=== PATIENT | male | born 1935 | race Caucasian/White ===

== ENCOUNTER 2019-10-20 07:25 | Observation (INO) | payer MEDICARE, BC ==
[2019-10-20 08:50] LABS: CHLORIDE,CL 100 mEq/L (98-106); SODIUM,NA 137 mEq/L (136-145)
--- NOTE | 2019-10-20 09:25 | EDM.PDOC ---
ED HPI GENERAL MEDICAL PROBLEM - General Chief Complaint: General Stated Complaint: fall with laceration Time Seen by Provider: 10/20/19 08:05 Source of Information: Reports: Patient, Family History Limitations: Reports: No Limitations - History of Present Illness INITIAL COMMENTS - FREE TEXT/NARRATIVE: Patient presented to ER per EMS with complaints of a fall this am at home. Patient relates he had gotten up to the bathroom, started to feel "a bit dizzy" and fell. Did hit his head on the floor, no loss of consciousness. Daughter does live with him and was in the next room and heard him fall. He denies headache. Has not been acutely ill. 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 Has been on daily chemo pills for the last year, has been stable. Patient denies any shortness of breath, chest pain, headache or fevers. Has been eating well per daughter's. Does relate that he doesn't drink much other than coffee so he tends to be "dry at times". 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) - Related Data Allergies Allergy/AdvReac Type Severity Reaction Status Date / Time No Known Allergies Allergy Verified 10/20/19 07:39 Home Meds: Home Meds Abiraterone Acetate [Zytiga] 250 mg PO QID 10/20/19 [History] Aspirin 325 mg PO DAILY 10/20/19 [History] Cholecalciferol (Vitamin D3) [Vitamin D3] 5,000 unit PO DAILY 10/20/19 [History] Folic Acid 0.4 mg PO DAILY 10/20/19 [History] Insulin Detemir [Levemir Flextouch] 10 unit SQ BEDTIME 10/20/19 [History] Irbesartan 150 mg PO DAILY 10/20/19 [History] Metoprolol Tartrate [Lopressor] 50 mg PO BID 10/20/19 [History] Pantoprazole Sodium 40 mg PO DAILY 10/20/19 [History] Prochlorperazine Maleate 10 mg PO ASDIRECTED PRN 10/20/19 [History] amLODIPine Besylate/Benazepril [Amlodipine-Benazepril 5-20 mg] 1 each PO DAILY 10/20/19 [History] metFORMIN HCl [Metformin HCl ER] 500 mg PO BID 10/20/19 [History] predniSONE [Prednisone] 5 mg PO BID 10/20/19 [History] traMADol HCl [Tramadol HCl] 1 tab PO Q8H PRN 10/20/19 [History] Past Medical History Cardiovascular History: Reports: High Cholesterol, Hypertension Respiratory History: Reports: COPD, Other (See Below) Other Respiratory History: lung nodule Gastrointestinal History: Reports: Cholelithiasis, Other (See Below) Other Gastrointestinal History: weight loss Genitourinary History: Reports: Urinary Incontinence, Other (See Below) Other Genitourinary History: prostrate CA Musculoskeletal History: Reports: Arthritis, Osteoporosis, Other (See Below) Other Musculoskeletal History: prostrate CA with bone mets Endocrine/Metabolic History: Reports: Diabetes, Type II, Other (See Below) Other Endocrine/Metabolic History: hyponatremia Oncologic (Cancer) History: Reports: Metastatic, Prostate, Other (See Below) Other Oncologic History: prostrate with bone mets - Past Surgical History Cardiovascular Surgical History: Reports: AAA Repair GI Surgical History: Reports: None Male Surgical History: Reports: Other (See Below) Other Male Surgeries/Procedures: prostrate seeds for CA Oncologic Surgical History: Reports: Other (See Below) Other Oncologic Surgeries/Procedures: seeds for prostrate CA Social & Family History - Tobacco Use Smoking Status *Q: Former Smoker Used Tobacco, but Quit: Yes Month/Year Tobacco Last Used: 2010 ED ROS GENERAL - Review of Systems Review Of Systems: See Below Constitutional: Reports: Malaise, Weakness, Fatigue. Denies: Fever, Chills, Decreased Appetite HEENT: Reports: Vertigo. Denies: Ear Discharge, Throat Pain, Vision Change Respiratory: Denies: Shortness of Breath Cardiovascular: Denies: Chest Pain, Edema, Lightheadedness Endocrine: Denies: Fatigue GI/Abdominal: Reports: Nausea. Denies: Abdominal Pain, Diarrhea, Vomiting : Denies: Incontinence Skin: Reports: Wound Neurological: Reports: Dizziness, Weakness. Denies: Seizure, Difficulty Walking Psychiatric: Reports: No Symptoms ED EXAM, GENERAL - Physical Exam Exam: See Below Exam Limited By: No Limitations General Appearance: Alert, WD/WN, No Apparent Distress Eye Exam: Bilateral Eye: EOMI, PERRL Ears: Normal External Exam, Normal TMs Nose: Normal Inspection, Normal Mucosa, No Blood Throat/Mouth: Normal Inspection, Normal Oropharynx, Other (mucous membranes are dry) Head: Normocephalic, Other (small hematoma to right parietal area to with superficial abrasion) Neck: Normal Inspection, Supple, Non-Tender, Full Range of Motion Respiratory/Chest: No Respiratory Distress, Lungs Clear, Normal Breath Sounds Cardiovascular: Regular Rate, Rhythm GI/Abdominal: Normal Bowel Sounds, Soft, Non-Tender Extremities: Normal Inspection, No Pedal Edema Neurological: Alert, Oriented Skin Exam: Warm, Dry Course - Vital Signs Last Recorded V/S: Last Vital Signs Temp 100.4 F 10/20/19 13:42 Pulse 130 H 10/20/19 13:42 Resp 20 10/20/19 13:42 BP 141/86 H 10/20/19 13:42 Pulse Ox 95 10/20/19 13:42 - Orders/Labs/Meds Orders: Active Orders 24 hr Category Date Time Status Head wo Cont [CT] Stat Exams 10/20/19 08:16 Taken Head wo Cont [CT] Stat Exams 10/20/19 11:29 Taken Hip Min 2V or 3V w Pelvis Rt [CR] Stat Exams 10/20/19 08:16 Taken Labs: Laboratory Tests 10/20/19 10/20/19 10/20/19 Range/Units 08:17 08:30 08:30 WBC 4.6 L (5.0-10.0) 10^3/uL RBC 5.72 (4.50-6.00) 10^6/uL Hgb 17.3 (14.0-18.0) g/dL Hct 48.3 (40.0-54.0) % MCV 84.4 (82.0-94.0) fL MCH 30.2 (27.0-32.0) pg MCHC 35.8 (33.0-38.0) g/dL RDW Coeff of Sherri 13.7 (11.0-15.0) % Plt Count 228 (150-400) 10^3/uL Neut % (Auto) 48.6 (35-85) % Lymph % (Auto) 35.2 (10-55) % [place] % (Auto) 14.7 (0-16) % Eos % (Auto) 0.9 (0-5) % Baso % (Auto) 0.6 (0-3) % Neut # (Auto) 2.25 (1.80-7.00) 10^3/uL Lymph # (Auto) 1.63 (1.00-4.80) 10^3/uL [place] # (Auto) 0.68 (0.00-0.80) 10^3/uL Eos # (Auto) 0.04 (0.00-0.45) 10^3/uL Baso # (Auto) 0.03 10^3/uL Sodium 137 (136-145) mEq/L Potassium 4.4 (3.5-5.0) mEq/L Chloride 100 (98-106) mEq/L Carbon Dioxide 28 (21-32) mmol/L BUN 17 (7-18) mg/dL Creatinine 0.9 (0.7-1.3) mg/dL Est Cr Clr Drug Dosing 63.48 mL/min Estimated GFR (MDRD) > 60 (>=60) mL/min Glucose 192 H (75-99) mg/dL Calcium 9.2 (8.4-10.1) mg/dL Total Bilirubin 0.6 (0.0-1.0) mg/dL AST 18 (15-37) U/L ALT 19 (12-78) U/L Alkaline Phosphatase 63 (46-116) U/L Troponin I < 0.017 (0.00-0.06) ng/mL Total Protein 7.4 (6.4-8.2) g/dL Albumin 3.5 (3.4-5.0) g/dL Urine Color Yellow (YELLOW) Urine Appearance Slightly cloudy (CLEAR) Urine pH 7.0 (4.5-8.0) Ur Specific [place] 1.020 (1.003-1.020) Urine Protein Trace H (NEGATIVE) mg/dL Urine Glucose (UA) Negative (NEGATIVE) mg/dL Urine Ketones Negative (NEGATIVE) mg/dL Urine Occult Blood Negative (NEGATIVE) Urine Nitrite Negative (NEGATIVE) Urine Bilirubin Negative (NEGATIVE) Urine Urobilinogen 1.0 (0.2-1.0) EU/dL Ur Leukocyte Esterase Negative (NEGATIVE) Urine RBC 0-5 (0-5) /HPF Urine WBC Not seen (0-5) /HPF Ur Epithelial Cells Few H (NOT SEEN) /HPF Meds: Medications Discontinued Medications Generic Name Dose Route Start Last Admin Trade Name Ani PRN Reason Stop Dose Admin Haloperidol Lactate 2 mg 10/20/19 11:37 10/20/19 11:45 Haldol IVPUSH 10/20/19 11:38 2 mg ONETIME ONE Administration Sodium Chloride 1,000 mls @ 150 mls/hr 10/20/19 11:30 10/20/19 11:36 Normal Saline IV 150 mls/hr ASDIRECTED JUANA Administration Sodium Chloride Confirm 10/20/19 11:41 10/20/19 11:46 Normal Saline Administered 10/20/19 11:42 Not Given Dose 1,000 mls @ as directed .ROUTE .STK-MED ONE Lorazepam 1 mg 10/20/19 11:28 10/20/19 11:35 Ativan IVPUSH 10/20/19 11:29 1 mg ONETIME ONE Administration Lorazepam Confirm 10/20/19 11:41 10/20/19 11:46 Ativan Administered 10/20/19 11:42 Not Given Dose 2 mg .ROUTE .STK-MED ONE - Re-Assessments/Exams Free Text/Narrative Re-Assessment/Exam: 10/20/19 0920- Patient's labs normal. CT scan of the head normal. Patient a bit more restless now than on presentation to ER. Was able to ambulate to the bathroom with his walker, did well. Once transferred to chair, less restless. Daughter worries about restlessness, seems "odd". Discussed admission with 2 daughters, patient but her refuses and they agree they will take him home to monitor. Did discuss changes to watch for, ie. mental status changes. Push fluids. Departure - Departure Time of Disposition: 09:24 Disposition: Home, Self-Care 01 Condition: Fair Clinical Impression: Contusion, Fall - Discharge Information *PRESCRIPTION DRUG MONITORING PROGRAM REVIEWED*: No *COPY OF PRESCRIPTION DRUG MONITORING REPORT IN PATIENT CYRIL: No Sepsis Event Note - Evaluation Sepsis Screening Result: No Definite Risk - Focused Exam Vital Signs: Vital Signs Temp Pulse Resp BP Pulse Ox 10/20/19 12:30 99.6 F 122 H 20 123/67 98 Date Exam was Performed: 10/20/19 Time Exam was Performed: 20:54 - My Orders Last 24 Hours: My Active Orders 10/20/19 08:16 Head wo Cont [CT] Stat Hip Min 2V or 3V w Pelvis Rt [CR] Stat 10/20/19 11:29 Head wo Cont [CT] Stat - Assessment/Plan Last 24 Hours: My Active Orders 10/20/19 08:16 Head wo Cont [CT] Stat Hip Min 2V or 3V w Pelvis Rt [CR] Stat 10/20/19 11:29 Head wo Cont [CT] Stat
[2019-10-20] MEDS ORDERED: LORazepam 2 MG/ML Syringe IVPUSH ONE (11:28)
[2019-10-20] MEDS ORDERED: Sodium Chloride 0.9% 1,000 ML IV SCH (11:30)
[2019-10-20] MEDS ORDERED: Haloperidol Lactate 5 MG/ML SDV IVPUSH ONE (11:37)
[2019-10-20] MEDS ORDERED: LORazepam 2 MG/ML Syringe ONE (11:41)
[2019-10-20] MEDS ORDERED: Sodium Chloride 0.9% 1,000 ML ONE (11:41)
--- NOTE | 2019-10-22 11:24 | PCM.DCSUM1 ---
Discharge Summary - Hospital Course Free Text/Narrative:: Jack is an 83 year old male who presented for direct admit to observation as he had been seen earlier in the ER and discharged. Patient presented in the am after a fall at home. He had been ambulating to the bathroom, got dizzy and fell to the floor. Did hit his head but no loss of consciousness. Daughter lives with patient and was there with him shortly after the fall. Did call for assistance to get him up from the floor and he was ambulating well and conversing well. Had labs and CT scan of his head in the ER which were normal. Was somewhat restless in the ER until settled in to a wheelchair but family opted to take him home as patient did not want to be admitted. After arriving at home, patient was more confused, restless, reaching out for things that weren 't there so they returned back for admission. Patient had significant change in status on arrival from EMS. Confused, dazed and not able to be redirected. Admitted for further work up including repeat CT scan. Oxygen sats vary now between 92-98%. Blood pressure is lower than earlier on arrival. IV fluids started. Diagnosis: Stroke: No - Discharge Data Discharge Date: 10/20/19 Discharge Disposition: DC/Tfer to Acute Hospital 02 Condition: Serious - Referral to Home Health Primary Care Physician: Iris Chairez NP - Patient Summary/Data Complications: altered mental status Hospital Course: Patient presented with confusion, restlessness. Had a fall this am after complaining of dizziness. Labs and CT in ER were normal. Returned home and had change of status so EMS was recalled. Directly admitted here. Patient thrashes around the bed, is dazed, unable to redirect. Vital signs are stable, blood pressure is normal however much lower than when presented earlier to ER. Did give patient IV ATivan and Haldol for sedation in order to obtain repeat CT scan of head. Was accomplished and again read out as normal. IV fluids started , patient oxygen sats do vary between 92-98%. Temp low grade now. Consulted with Dr. Khan at [facility] due to change in status and unknown source of change. Did agree to accept the patient in transfer. [facility] arranged. Family aware of risks and benefits of transfer as adequately discussed with all 4 sisters. Do want to keep patient a Code 1 now except intubation as does have a history of stage IV prostate cancer. Risks of transfer include worsening status with possible , life flight crash. Benefits of transfer include intensive care with further testing and treatment options. Risks of non transfer include worsening status and . Benefits of transfer include care close to home. Family all agrees with transfer to [facility] On discharge, patient is more calm, does say yes and no now. Vital signs stable. - Patient Instructions Diet: NPO Activity: Bedrest - Discharge Plan *PRESCRIPTION DRUG MONITORING PROGRAM REVIEWED*: No *COPY OF PRESCRIPTION DRUG MONITORING REPORT IN PATIENT CYRIL: No Home Medications: Home Meds Abiraterone Acetate [Zytiga] 250 mg PO QID 10/20/19 [History] Aspirin 325 mg PO DAILY 10/20/19 [History] Cholecalciferol (Vitamin D3) [Vitamin D3] 5,000 unit PO DAILY 10/20/19 [History] Folic Acid 0.4 mg PO DAILY 10/20/19 [History] Insulin Detemir [Levemir Flextouch] 10 unit SQ BEDTIME 10/20/19 [History] Irbesartan 150 mg PO DAILY 10/20/19 [History] Metoprolol Tartrate [Lopressor] 50 mg PO BID 10/20/19 [History] Pantoprazole Sodium 40 mg PO DAILY 10/20/19 [History] Prochlorperazine Maleate 10 mg PO ASDIRECTED PRN 10/20/19 [History] amLODIPine Besylate/Benazepril [Amlodipine-Benazepril 5-20 mg] 1 each PO DAILY 10/20/19 [History] metFORMIN HCl [Metformin HCl ER] 500 mg PO BID 10/20/19 [History] predniSONE [Prednisone] 5 mg PO BID 10/20/19 [History] traMADol HCl [Tramadol HCl] 1 tab PO Q8H PRN 10/20/19 [History] Forms: ED Department Discharge Referrals: Iris Chairez, RECORDS MANAGEMENT DIRECTOR [Primary Care Provider] - - Discharge Summary/Plan Comment DC Time >30 min.: Yes Discharge Summary/Plan Comment: Transfer to [facility] ER Time with critical care with patient 60 minutes Time for transfer/orders 15 minutes Time for documentation 15 minutes - General Info Date of Service: 10/20/19 Admission Dx/Problem (Free Text: Altered Mental Status - Review of Systems General: Reports: Other (unobtainable) - Patient Data Vitals - Most Recent: Last Vital Signs Temp 100.4 F 10/20/19 13:42 Pulse 130 H 10/20/19 13:42 Resp 20 10/20/19 13:42 BP 141/86 H 10/20/19 13:42 Pulse Ox 95 10/20/19 13:42 Weight - Most Recent: 149 lb Med Orders - Current: Current Medications Discontinued Medications Haloperidol Lactate (Haldol) 2 mg IVPUSH ONETIME ONE Stop: 10/20/19 11:38 Last Admin: 10/20/19 11:45 Dose: 2 mg Sodium Chloride (Normal Saline) 1,000 mls @ 150 mls/hr IV ASDIRECTED JUANA Last Admin: 10/20/19 11:36 Dose: 150 mls/hr Sodium Chloride (Normal Saline) Confirm Administered Dose 1,000 mls @ as directed .ROUTE .STK-MED ONE Stop: 10/20/19 11:42 Last Admin: 10/20/19 11:46 Dose: Not Given Lorazepam (Ativan) 1 mg IVPUSH ONETIME ONE Stop: 10/20/19 11:29 Last Admin: 10/20/19 11:35 Dose: 1 mg Lorazepam (Ativan) Confirm Administered Dose 2 mg .ROUTE .STK-MED ONE Stop: 10/20/19 11:42 Last Admin: 10/20/19 11:46 Dose: Not Given - Exam Quality Assessment: Reports: Supplemental Oxygen General: Reports: Sedated, Lethargic HEENT: Reports: Pupils Reactive Neck: Reports: Supple Lungs: Reports: Clear to Auscultation, Normal Respiratory Effort Cardiovascular: Reports: Regular Rate, Regular Rhythm GI/Abdominal Exam: Normal Bowel Sounds, Soft, Non-Tender Skin: Reports: Cool Psy/Mental Status: Reports: Agitated
== END 2019-10-20 14:25 ==
LOC: CC.ED 07:25 → CC.MS 10:30 → UNDOADMOB 10:30 → CC.MS 12:50
PROVIDERS: ADMIT Physician Assistant Medical; ATTEND Family Medicine
DX: R41.82 Altered mental status, unspecified (principal); S00.83XA Contusion of other part of head, initial encounter; E78.00 Pure hypercholesterolemia, unspecified; I10 Essential (primary) hypertension; J44.9 Chronic obstructive pulmonary disease, unspecified; M19.90 Unspecified osteoarthritis, unspecified site; M81.0 Age-related osteoporosis without current pathological fracture; E11.9 Type 2 diabetes mellitus without complications; W18.30XA Fall on same level, unspecified, initial encounter; Y92.002 Bathroom of unspecified non-institutional (private) residence as the place of occurrence of the external cause; Z87.891 Personal history of nicotine dependence
CPT/HCPCS: 36415; 51702; 70450; 73502; 80053; 81001; 84484; 85025; 93005; 96374; 96375; 99285; G0378; J1630; J2060; J7030

== ENCOUNTER 2022-01-22 20:27 | Emergency (ER) | payer MEDICARE, BC ==
[2022-01-22 21:18] LABS: CHLORIDE,CL 100 mEq/L (98-106); SODIUM,NA 137 mEq/L (136-145)
== END 2022-01-22 23:00 | disposition home or self-care (01) ==
LOC: CC.ED 20:27
DX: K59.01 Slow transit constipation (principal); E11.9 Type 2 diabetes mellitus without complications; I10 Essential (primary) hypertension; J44.9 Chronic obstructive pulmonary disease, unspecified; Z79.4 Long term (current) use of insulin; Z79.899 Other long term (current) drug therapy; Z88.1 Allergy status to other antibiotic agents
CPT/HCPCS: 36415; 74019; 80053; 81001; 83690; 85025; 86140; 99284; 99284-25

== ENCOUNTER 2022-06-13 21:26 | Emergency (ER) | payer MEDICARE, BC ==
[2022-06-13] MEDS ORDERED: Sodium Chloride 0.9% 1,000 ML IV ONE (22:14)
[2022-06-13] MEDS ORDERED: Sodium Chloride 0.9% 10 ML Syringe FLUSH PRN (22:14)
[2022-06-13] MEDS ORDERED: Furosemide 40 MG/4 ML VIAL IVPUSH ONE (23:13)
== END 2022-06-14 01:55 ==
LOC: CC.ED 21:26
DX: I12.9 Hypertensive chronic kidney disease with stage 1 through stage 4 chronic kidney disease, or unspecified chronic kidney disease (principal); E11.22 Type 2 diabetes mellitus with diabetic chronic kidney disease; N18.32 Chronic kidney disease, stage 3b; E87.5 Hyperkalemia; E87.1 Hypo-osmolality and hyponatremia; L03.116 Cellulitis of left lower limb; E78.00 Pure hypercholesterolemia, unspecified; J44.9 Chronic obstructive pulmonary disease, unspecified; Z88.1 Allergy status to other antibiotic agents; Z79.01 Long term (current) use of anticoagulants; Z79.4 Long term (current) use of insulin
CPT/HCPCS: 36415; 74176; 80053; 83880; 84484; 85025; 93005; 96361; 96374; 99284-25; 99285; J1940; J7030

== ENCOUNTER 2022-06-15 11:29 | Emergency (ER) | payer MEDICARE, BC ==
[2022-06-15] MEDS ORDERED: Sodium Chloride 0.9% 1,000 ML IV ONE (11:47)
[2022-06-15] MEDS ORDERED: Sodium Chloride 0.9% 10 ML Syringe FLUSH PRN (11:47)
[2022-06-15 11:55] LABS: CHLORIDE,CL 90 mEq/L (98-106)
[2022-06-15 11:56] LABS: ESTIMATED GFR 46 mL/min (>=60); SODIUM,NA 123 mEq/L (136-145)
[2022-06-15] MEDS ORDERED: traMADol 50 MG Tab PO ONE (15:13)
[2022-06-15] MEDS ORDERED: Acetaminophen 325 MG Tab PO ONE (15:14)
== END 2022-06-15 17:45 | disposition home or self-care (01) ==
LOC: CC.ED 11:29
DX: R53.1 Weakness (principal); I12.9 Hypertensive chronic kidney disease with stage 1 through stage 4 chronic kidney disease, or unspecified chronic kidney disease; E11.22 Type 2 diabetes mellitus with diabetic chronic kidney disease; N18.32 Chronic kidney disease, stage 3b; E87.1 Hypo-osmolality and hyponatremia; E78.00 Pure hypercholesterolemia, unspecified; J44.9 Chronic obstructive pulmonary disease, unspecified; Z79.4 Long term (current) use of insulin; Z79.01 Long term (current) use of anticoagulants; Z79.899 Other long term (current) drug therapy
CPT/HCPCS: 36415; 73700-RT; 80053; 83735; 85025; 96360; 96361; 99284; 99284-25; A9270-GY; J7030

== ENCOUNTER 2022-08-19 12:00 | Inpatient (IN) | payer MEDICARE, BC ==
[2022-08-19] MEDS ORDERED: Barium Sulfate w/v 2% Oral Susp 450 ML Bottle PO ONE (20:25)
[2022-09-13 10:38] LABS: CHLORIDE,CL 98 mEq/L (98-106); SODIUM,NA 133 mEq/L (136-145)
[2022-09-13 10:39] LABS: ESTIMATED GFR 39 mL/min (>=60)
[2022-09-13 12:36] LABS: CHLORIDE,CL 97 mEq/L (98-106); ESTIMATED GFR 29 mL/min (>=60); SODIUM,NA 132 mEq/L (136-145)
== END 2022-08-22 12:41 | disposition home or self-care (01) | DRG 309 ==
LOC: CC.DI 12:00 → CC.ZCENSUS 13:52 → UNDOADMIN 13:52 → UNDODISIN 08-22 12:41 → EDSTATUS 09-11 16:22
PROVIDERS: ADMIT Nurse Practitioner Family; ATTEND Nurse Practitioner Family
DX: I48.91 Unspecified atrial fibrillation (principal); N17.9 Acute kidney failure, unspecified; E87.5 Hyperkalemia; E13.51 Other specified diabetes mellitus with diabetic peripheral angiopathy without gangrene; Z66 Do not resuscitate; Z20.822 Contact with and (suspected) exposure to COVID-19; Z85.46 Personal history of malignant neoplasm of prostate; K59.00 Constipation, unspecified; Z86.73 Personal history of transient ischemic attack (TIA), and cerebral infarction without residual deficits; Z79.899 Other long term (current) drug therapy
CPT/HCPCS: 71046; 73030-RT; 74018; 74176; 93005

== ENCOUNTER 2023-04-30 10:10 | Observation (INO) | payer MEDICARE, BC ==
[2023-04-30 10:24] LABS: BASOPHILS ABSOLUTE AUTO 0.04 10^3/uL (0.00-0.50); BASOPHILS PERCENT AUTO 0.5 % (0-1); EOSINOPHILS ABSOLUTE AUTO 0.09 10^3/uL (0.00-1.50); EOSINOPHILS PERCENT AUTO 1.1 % (0-6); HEMATOCRIT 24.2 % (42.0-52.0); IMMATURE GRAN ABSOLUTE AUTO 0.04 10^3/uL (0.00-0.49); IMMATURE GRAN PERCENT AUTO 0.5 % (0.0-4.9); LYMPHOCYTES ABSOLUTE AUTO 0.55 10^3/uL (0.60-5.00); LYMPHOCYTES PERCENT AUTO 6.5 % (24-44); MEAN CORPUSCULAR HEMOGLOBIN 20.1 pg (27.0-32.0); MEAN CORPUSCULAR HGB CONC 29.3 g/dL (32.0-36.0); MEAN CORPUSCULAR VOLUME 68.6 fL (83.0-97.0); MONOCYTES ABSOLUTE AUTO 0.85 10^3/uL (0.00-1.50); NEUTROPHILS ABSOLUTE AUTO 6.93 x10^3/uL (1.80-8.00); NEUTROPHILS PERCENT AUTO 81.4 % (41-71); PLATELET COUNT,PLT 318 10^3/uL (150-400); RED BLOOD CELL COUNT 3.53 x10^6/uL (4.50-6.00); WHITE BLOOD CELL COUNT,WBC 8.5 10^3/uL (4.0-11.0)
[2023-04-30 10:32] LABS: HEMOGLOBIN 7.1 g/dL (14.0-18.0)
[2023-04-30 10:46] LABS: SEDIMENTATION RATE MANUAL 43 mm/hr (0-15)
[2023-04-30 10:49] LABS: ALANINE AMINOTRANSFERASE,ALT 24 U/L (12-78); ALKALINE PHOSPHATASE 59 U/L (46-116); ASPARTATE AMNIOTRANSFERASE,AST 19 U/L (15-37); BILIRUBIN TOTAL 0.4 mg/dL (0.0-1.0); BLOOD UREA NITROGEN,BUN 34 mg/dL (7-18); C-REACTIVE PROTEIN 2.18 mg/dL (<=0.30); CALCIUM 8.8 mg/dL (8.4-10.1); CARBON DIOXIDE,CO2 26 mmol/L (21-32); CHLORIDE,CL 98 mEq/L (98-106); CREATININE 1.6 mg/dL (0.7-1.3); GLUCOSE RANDOM 153 mg/dL (75-99); POTASSIUM,K 5.2 mEq/L (3.5-5.0); PRO B-TYPE NATRIUR PEPT,BNPPRO 1988 pg/mL (0-1000); PROTEIN TOTAL,TP 7.1 g/dL (6.4-8.2); PSA DIAGNOSTIC 70.55 ng/mL (0.13-4.0); SODIUM,NA 132 mEq/L (136-145)
[2023-04-30 10:56] LABS: ESTIMATED GFR 42 mL/min (>=60)
[2023-04-30] MEDS ORDERED: Acetaminophen 325 MG Tab PO PRN (13:26)
[2023-04-30] MEDS ORDERED: Acetaminophen 325 MG Tab PO ONE (13:26)
[2023-04-30] MEDS ORDERED: Ondansetron 4 MG/2 ML SDV IV PRN (13:26)
[2023-04-30] MEDS ORDERED: Ondansetron 4 MG Tab.DIS PO PRN (13:26)
[2023-04-30] MEDS ORDERED: Furosemide 20 MG/2 ML VIAL IVPUSH ONE (13:26)
[2023-04-30] MEDS ORDERED: Sodium Chloride 0.9% 250 ML IV SCH (13:30)
[2023-04-30 14:00] LABS: APPEARANCE,URINE CLEAR (CLEAR); BILIRUBIN,URINE NEGATIVE (NEGATIVE); COLOR,URINE YELLOW (YELLOW); GLUCOSE,URINE NEGATIVE (NEGATIVE); KETONES,URINE NEGATIVE (NEGATIVE); LEUKOCYTE ESTERASE,URINE SMALL (NEGATIVE); NITRITE,URINE NEGATIVE (NEGATIVE); OCCULT BLOOD,URINE MODERATE (NEGATIVE); PH,URINE 5.5 (4.5-8.0); PROTEIN,URINE NEGATIVE (NEGATIVE); UROBILINOGEN,URINE 0.2 EU/dL (0.2-1.0)
[2023-04-30 14:03] LABS: BACTERIA,URINE OCCASIONAL /HPF (NOT SEEN); EPITHELIAL CELLS,URINE OCCASIONAL /HPF (NOT SEEN); WBC,URINE 0-5 /HPF (0-5)
[2023-04-30] MEDS ORDERED: Pantoprazole 40 MG Vial IVPUSH ONE (14:27)
[2023-04-30] MEDS ORDERED: Pantoprazole 40 MG in Sodium Chloride 0.9% 100 ML IV SCH (14:45)
[2023-04-30] MEDS: metFORMIN 500 MG Tab PO SCH (17:59)
[2023-04-30] MEDS: Sennosides/Docusate Sodium 50-8.6 MG Tab PO SCH (19:53)
[2023-04-30] MEDS: Acetaminophen 325 MG Tab PO SCH (19:53)
[2023-04-30] MEDS: predniSONE 5 MG Tab PO SCH (19:53)
[2023-04-30] MEDS: Tamsulosin 0.4 MG Cap.ER PO SCH (19:53)
[2023-04-30] MEDS: traMADol 50 MG Tab PO SCH (19:53)
[2023-04-30] MEDS: Metoprolol Tartrate 25 MG Tab PO SCH (19:54)
[2023-04-30] MEDS: Diltiazem IR 30 MG Tab PO SCH (19:54)
[2023-05-01] MEDS: Diltiazem IR 30 MG Tab PO SCH ×4 (01:31→19:50)
[2023-05-01] MEDS: Pantoprazole 40 MG Tab.CR PO SCH (06:49)
[2023-05-01 07:42] LABS: BASOPHILS ABSOLUTE AUTO 0.04 10^3/uL (0.00-0.50); BASOPHILS PERCENT AUTO 0.5 % (0-1); EOSINOPHILS ABSOLUTE AUTO 0.08 10^3/uL (0.00-1.50); HEMATOCRIT 28.4 % (42.0-52.0); HEMOGLOBIN 8.7 g/dL (14.0-18.0); IMMATURE GRAN ABSOLUTE AUTO 0.03 10^3/uL (0.00-0.49); IMMATURE GRAN PERCENT AUTO 0.4 % (0.0-4.9); LYMPHOCYTES PERCENT AUTO 8.3 % (24-44); MEAN CORPUSCULAR HEMOGLOBIN 21.6 pg (27.0-32.0); MEAN CORPUSCULAR HGB CONC 30.6 g/dL (32.0-36.0); MEAN CORPUSCULAR VOLUME 70.5 fL (83.0-97.0); MONOCYTES ABSOLUTE AUTO 1.04 10^3/uL (0.00-1.50); MONOCYTES PERCENT AUTO 12.4 % (0-10); NEUTROPHILS PERCENT AUTO 77.4 % (41-71); PLATELET COUNT,PLT 313 10^3/uL (150-400); RED BLOOD CELL COUNT 4.03 x10^6/uL (4.50-6.00); WHITE BLOOD CELL COUNT,WBC 8.4 10^3/uL (4.0-11.0)
[2023-05-01 07:49] LABS: CALCIUM 8.5 mg/dL (8.4-10.1); CREATININE 1.4 mg/dL (0.7-1.3); EST CRCL DRUG DOSING (CG) 39.83 mL/min; POTASSIUM,K 4.2 mEq/L (3.5-5.0)
[2023-05-01] MEDS ORDERED: Non-Formulary Medication 1 Each (Amlodipine Besylate/Benazepril [Amlodipine-Benazepril 10- PO SCH (08:00)
[2023-05-01] MEDS: Cholecalciferol (Vitamin D3) 5,000 UNIT Tab PO SCH (08:12)
[2023-05-01] MEDS: Furosemide 40 MG Tab PO SCH (08:13)
[2023-05-01] MEDS: Acetaminophen 325 MG Tab PO SCH ×2 (08:14→19:49)
[2023-05-01] MEDS: Lisinopril 20 MG Tab PO SCH (08:14)
[2023-05-01] MEDS: Metoprolol Tartrate 25 MG Tab PO SCH ×2 (08:15→19:50)
[2023-05-01] MEDS: metFORMIN 500 MG Tab PO SCH ×3 (08:15→18:30)
[2023-05-01] MEDS: predniSONE 5 MG Tab PO SCH ×2 (08:15→19:50)
[2023-05-01] MEDS: amLODIPine 10 MG Tab PO SCH (08:16)
[2023-05-01] MEDS: Sennosides/Docusate Sodium 50-8.6 MG Tab PO SCH ×2 (08:16→19:50)
[2023-05-01] MEDS: traMADol 50 MG Tab PO SCH ×2 (08:17→19:50)
[2023-05-01] MEDS: atorvaSTATin 20 MG Tab PO SCH (08:17)
[2023-05-01] MEDS: Insulin NPH HUM/REG Insulin HM 100 UNIT/ML 3 ML Vial SQ SCH (08:18)
[2023-05-01] MEDS ORDERED: Insulin NPH HUM/REG Insulin HM 100 UNIT/ML 3 ML Vial SQ SCH ×2 (12:00→20:00)
[2023-05-01] MEDS ORDERED: Nystatin Topical Powder 15 GM Bottle ONE (17:59)
[2023-05-01] MEDS: Nystatin Topical Powder 15 GM Bottle TOP SCH (19:49)
[2023-05-01] MEDS: Tamsulosin 0.4 MG Cap.ER PO SCH (19:50)
[2023-05-02] MEDS: Diltiazem IR 30 MG Tab PO SCH ×2 (01:52→07:52)
[2023-05-02] MEDS: Pantoprazole 40 MG Tab.CR PO SCH (06:53)
[2023-05-02 07:36] LABS: BASOPHILS ABSOLUTE AUTO 0.03 10^3/uL (0.00-0.50); BASOPHILS PERCENT AUTO 0.4 % (0-1); EOSINOPHILS ABSOLUTE AUTO 0.07 10^3/uL (0.00-1.50); HEMATOCRIT 29.4 % (42.0-52.0); HEMOGLOBIN 8.8 g/dL (14.0-18.0); IMMATURE GRAN ABSOLUTE AUTO 0.04 10^3/uL (0.00-0.49); IMMATURE GRAN PERCENT AUTO 0.6 % (0.0-4.9); LYMPHOCYTES ABSOLUTE AUTO 0.52 10^3/uL (0.60-5.00); LYMPHOCYTES PERCENT AUTO 7.5 % (24-44); MEAN CORPUSCULAR HEMOGLOBIN 21.2 pg (27.0-32.0); MEAN CORPUSCULAR HGB CONC 29.9 g/dL (32.0-36.0); MEAN CORPUSCULAR VOLUME 70.8 fL (83.0-97.0); MONOCYTES ABSOLUTE AUTO 0.85 10^3/uL (0.00-1.50); MONOCYTES PERCENT AUTO 12.3 % (0-10); NEUTROPHILS PERCENT AUTO 78.2 % (41-71); PLATELET COUNT,PLT 300 10^3/uL (150-400); RED BLOOD CELL COUNT 4.15 x10^6/uL (4.50-6.00); WHITE BLOOD CELL COUNT,WBC 6.9 10^3/uL (4.0-11.0)
[2023-05-02] MEDS: Acetaminophen 325 MG Tab PO SCH (07:50)
[2023-05-02] MEDS: traMADol 50 MG Tab PO SCH (07:51)
[2023-05-02] MEDS: atorvaSTATin 20 MG Tab PO SCH (07:51)
[2023-05-02] MEDS: Cholecalciferol (Vitamin D3) 5,000 UNIT Tab PO SCH (07:52)
[2023-05-02] MEDS: predniSONE 5 MG Tab PO SCH (07:52)
[2023-05-02] MEDS: Sennosides/Docusate Sodium 50-8.6 MG Tab PO SCH (07:52)
[2023-05-02] MEDS: Furosemide 40 MG Tab PO SCH (07:52)
[2023-05-02] MEDS: Metoprolol Tartrate 25 MG Tab PO SCH (07:53)
[2023-05-02] MEDS: Lisinopril 20 MG Tab PO SCH (07:54)
[2023-05-02] MEDS: amLODIPine 10 MG Tab PO SCH (07:54)
[2023-05-02] MEDS: Nystatin Topical Powder 15 GM Bottle TOP SCH (07:55)
[2023-05-02] MEDS: metFORMIN 500 MG Tab PO SCH (07:56)
[2023-05-02] MEDS: Insulin NPH HUM/REG Insulin HM 100 UNIT/ML 3 ML Vial SQ SCH (07:56)
[2023-05-02 08:09] LABS: ALBUMIN 2.7 g/dL (3.4-5.0); BILIRUBIN TOTAL 0.6 mg/dL (0.0-1.0); CALCIUM 8.4 mg/dL (8.4-10.1); CREATININE 1.4 mg/dL (0.7-1.3); EST CRCL DRUG DOSING (CG) 39.83 mL/min; POTASSIUM,K 4.4 mEq/L (3.5-5.0); PROTEIN TOTAL,TP 6.7 g/dL (6.4-8.2)
== END 2023-05-02 11:15 | disposition home or self-care (01) ==
LOC: CC.FCMC 10:10 → CC.MS 10:10 → UNDOADMOB 12:13 → CC.MS 12:13
PROVIDERS: ADMIT Nurse Practitioner Family; ATTEND Nurse Practitioner Family
DX: D50.0 Iron deficiency anemia secondary to blood loss (chronic) (principal); R19.5 Other fecal abnormalities; R41.0 Disorientation, unspecified; R63.0 Anorexia; R31.9 Hematuria, unspecified; R53.83 Other fatigue; R53.1 Weakness; I50.9 Heart failure, unspecified; C61 Malignant neoplasm of prostate; C79.51 Secondary malignant neoplasm of bone; R33.9 Retention of urine, unspecified; J44.9 Chronic obstructive pulmonary disease, unspecified; R63.4 Abnormal weight loss; M81.0 Age-related osteoporosis without current pathological fracture; M19.90 Unspecified osteoarthritis, unspecified site; E11.9 Type 2 diabetes mellitus without complications; Z88.1 Allergy status to other antibiotic agents; Z79.01 Long term (current) use of anticoagulants; Z79.4 Long term (current) use of insulin; Z79.84 Long term (current) use of oral hypoglycemic drugs; Z79.899 Other long term (current) drug therapy
CPT/HCPCS: 36415; 36430; 70450; 71046; 73030; 74176; 80048; 80053; 81001; 82272; 82947; 83880; 84153; 85025; 85651; 86140; 86850; 86900; 86901; 86920; 86922; 96365; 96366; 96375; 96376; A9270; C1758; C9113; G0378; J1815; J1940; J3490; J7512; P9016; 99223; 99233; 99238

== ENCOUNTER 2023-06-13 20:51 | Inpatient (IN) | payer MEDICARE, BC ==
[2023-06-13] MEDS ORDERED: Sodium Chloride 0.9% 500 ML IV SCH (21:15)
[2023-06-13 21:25] LABS: BASOPHILS ABSOLUTE AUTO 0.04 10^3/uL (0.00-0.50); BASOPHILS PERCENT AUTO 0.6 % (0-1); EOSINOPHILS ABSOLUTE AUTO 0.03 10^3/uL (0.00-1.50); EOSINOPHILS PERCENT AUTO 0.4 % (0-6); HEMATOCRIT 33.1 % (42.0-52.0); HEMOGLOBIN 10.2 g/dL (14.0-18.0); IMMATURE GRAN ABSOLUTE AUTO 0.04 10^3/uL (0.00-0.49); IMMATURE GRAN PERCENT AUTO 0.6 % (0.0-4.9); LYMPHOCYTES ABSOLUTE AUTO 0.62 10^3/uL (0.60-5.00); LYMPHOCYTES PERCENT AUTO 8.6 % (24-44); MEAN CORPUSCULAR HEMOGLOBIN 21.9 pg (27.0-32.0); MEAN CORPUSCULAR HGB CONC 30.8 g/dL (32.0-36.0); MONOCYTES ABSOLUTE AUTO 0.69 10^3/uL (0.00-1.50); MONOCYTES PERCENT AUTO 9.6 % (0-10); NEUTROPHILS PERCENT AUTO 80.2 % (41-71); PLATELET COUNT,PLT 299 10^3/uL (150-400); RED BLOOD CELL COUNT 4.66 x10^6/uL (4.50-6.00); WHITE BLOOD CELL COUNT,WBC 7.2 10^3/uL (4.0-11.0)
[2023-06-13 21:37] LABS: LACTIC ACID 1.8 mmol/L (0.4-2.0)
[2023-06-13 21:42] LABS: ALBUMIN 3.3 g/dL (3.4-5.0); BILIRUBIN TOTAL 0.6 mg/dL (0.0-1.0); C-REACTIVE PROTEIN 1.2 mg/dL (<=0.30); CALCIUM 9.6 mg/dL (8.4-10.1); CREATININE 1.4 mg/dL (0.7-1.3); EST CRCL DRUG DOSING (CG) 37.32 mL/min; POTASSIUM,K 4.2 mEq/L (3.5-5.0); PROTEIN TOTAL,TP 7.9 g/dL (6.4-8.2)
[2023-06-13] MEDS ORDERED: Diltiazem 25 MG/5 ML SDV IVPUSH ONE (22:18)
[2023-06-13] MEDS ORDERED: Levofloxacin/Dextrose 5%-Water 750 MG in Premix Bag 1 BAG IV ONE (22:21)
[2023-06-13 22:57] LABS: APPEARANCE,URINE CLEAR (CLEAR); BILIRUBIN,URINE NEGATIVE (NEGATIVE); COLOR,URINE YELLOW (YELLOW); GLUCOSE,URINE 100 mg/dL (NEGATIVE); KETONES,URINE NEGATIVE (NEGATIVE); LEUKOCYTE ESTERASE,URINE TRACE (NEGATIVE); NITRITE,URINE NEGATIVE (NEGATIVE); OCCULT BLOOD,URINE MODERATE (NEGATIVE); PROTEIN,URINE NEGATIVE (NEGATIVE); UROBILINOGEN,URINE 0.2 EU/dL (0.2-1.0)
[2023-06-13 23:04] LABS: BACTERIA,URINE FEW /HPF (NOT SEEN); SQUAMOUS EPITHELIAL CELLS,UR OCCASIONAL /HPF (NOT SEEN); WBC,URINE 0-5 /HPF (0-5)
[2023-06-13] MEDS ORDERED: Ondansetron 4 MG Tab.DIS PO PRN (23:13)
[2023-06-13] MEDS ORDERED: Acetaminophen 650 MG Supp RECTAL PRN (23:13)
[2023-06-13] MEDS ORDERED: 50% Dextrose in Water 50 ML Syringe IVPUSH PRN (23:13)
[2023-06-13] MEDS ORDERED: Albuterol 0.083% 2.5 MG/3 ML Neb Soln NEB PRN (23:13)
[2023-06-13] MEDS ORDERED: Sodium Chloride 0.9% 10 ML Syringe FLUSH PRN (23:13)
[2023-06-13] MEDS ORDERED: Ondansetron 4 MG/2 ML SDV IV PRN (23:13)
[2023-06-13] MEDS ORDERED: Glucagon,Human Recombinant 1 MG Vial IM PRN (23:13)
[2023-06-13] MEDS ORDERED: Furosemide 40 MG/4 ML VIAL ONE (23:49)
[2023-06-13] MEDS: Acetaminophen 325 MG Tab PO PRN (23:54)
[2023-06-13] MEDS ORDERED: Insulin Regular, Human 100 Units/ML 3 ML Vial ONE (23:55)
[2023-06-14] MEDS ORDERED: Insulin Regular, Human 100 Units/ML 3 ML Vial ONE
[2023-06-14] MEDS ORDERED: Diltiazem 25 MG/5 ML SDV IVPUSH STA (00:03)
[2023-06-14] MEDS: Insulin Regular, Human 100 Units/ML 3 ML Vial SUBCUT SCH ×6 (00:16→20:52)
[2023-06-14] MEDS: Furosemide 40 MG/4 ML VIAL IVPUSH SCH ×3 (00:18→16:13)
[2023-06-14] MEDS: Pantoprazole 40 MG Tab.CR PO SCH (06:02)
[2023-06-14 07:54] LABS: BASOPHILS ABSOLUTE AUTO 0.05 10^3/uL (0.00-0.50); BASOPHILS PERCENT AUTO 0.8 % (0-1); EOSINOPHILS ABSOLUTE AUTO 0.08 10^3/uL (0.00-1.50); EOSINOPHILS PERCENT AUTO 1.2 % (0-6); HEMATOCRIT 30.5 % (42.0-52.0); HEMOGLOBIN 9.6 g/dL (14.0-18.0); IMMATURE GRAN ABSOLUTE AUTO 0.04 10^3/uL (0.00-0.49); IMMATURE GRAN PERCENT AUTO 0.6 % (0.0-4.9); LYMPHOCYTES ABSOLUTE AUTO 0.84 10^3/uL (0.60-5.00); LYMPHOCYTES PERCENT AUTO 12.7 % (24-44); MEAN CORPUSCULAR HEMOGLOBIN 22.1 pg (27.0-32.0); MEAN CORPUSCULAR HGB CONC 31.5 g/dL (32.0-36.0); MEAN CORPUSCULAR VOLUME 70.3 fL (83.0-97.0); MONOCYTES ABSOLUTE AUTO 1.02 10^3/uL (0.00-1.50); MONOCYTES PERCENT AUTO 15.4 % (0-10); NEUTROPHILS ABSOLUTE AUTO 4.58 x10^3/uL (1.80-8.00); NEUTROPHILS PERCENT AUTO 69.3 % (41-71); PLATELET COUNT,PLT 267 10^3/uL (150-400); RED BLOOD CELL COUNT 4.34 x10^6/uL (4.50-6.00); WHITE BLOOD CELL COUNT,WBC 6.6 10^3/uL (4.0-11.0)
[2023-06-14] MEDS: traMADol 50 MG Tab PO SCH ×2 (07:58→19:41)
[2023-06-14] MEDS: Loratadine 10 MG Tab PO SCH (07:58)
[2023-06-14] MEDS: Sennosides/Docusate Sodium 50-8.6 MG Tab PO SCH ×2 (07:58→19:41)
[2023-06-14] MEDS: Cholecalciferol (Vitamin D3) 25 MCG Tab PO SCH (07:59)
[2023-06-14] MEDS: Folic Acid 1 MG Tab PO SCH (08:00)
[2023-06-14] MEDS: Acetaminophen 325 MG Tab PO SCH ×2 (08:00→19:42)
[2023-06-14] MEDS ORDERED: Nystatin Topical Powder 15 GM Bottle TOP SCH (08:00)
[2023-06-14] MEDS: Albuterol/Ipratropium 3.0-0.5 MG/3 ML Neb Soln NEB SCH ×4 (08:01→19:39)
[2023-06-14] MEDS: metFORMIN 500 MG Tab PO SCH ×2 (08:01→16:29)
[2023-06-14] MEDS: atorvaSTATin 20 MG Tab PO SCH (08:02)
[2023-06-14] MEDS: amLODIPine 10 MG Tab PO SCH (08:02)
[2023-06-14] MEDS: predniSONE 5 MG Tab PO SCH ×2 (08:02→19:41)
[2023-06-14] MEDS: Diltiazem IR 30 MG Tab PO SCH ×4 (08:03→19:41)
[2023-06-14] MEDS: Lisinopril 20 MG Tab PO SCH (08:03)
[2023-06-14 08:07] LABS: ALBUMIN 2.9 g/dL (3.4-5.0); BILIRUBIN TOTAL 0.6 mg/dL (0.0-1.0); C-REACTIVE PROTEIN 0.98 mg/dL (<=0.30); CALCIUM 9.1 mg/dL (8.4-10.1); CREATININE 1.3 mg/dL (0.7-1.3); EST CRCL DRUG DOSING (CG) 40.19 mL/min; POTASSIUM,K 4.1 mEq/L (3.5-5.0)
[2023-06-14] MEDS: Metoprolol Tartrate 25 MG Tab PO SCH ×2 (08:07→19:41)
[2023-06-14] MEDS: Calcium Carbonate/Vitamin D3 1250 MG-5 MCG Tab PO SCH ×2 (08:07→19:43)
[2023-06-14] MEDS: Polyvinyl Alcohol 1.4% Ophth Soln 15 ML Bottle EYEBOTH SCH ×2 (08:18→20:52)
[2023-06-14] MEDS: Polyethylene Glycol 3350 Powder 17 GM Packet PO SCH (08:34)
[2023-06-14] MEDS: Insulin Glarg,Human.Rec.Analog 100 Unit/ML 10 ML Vial SUBCUT SCH (08:34)
[2023-06-14] MEDS: Sodium Chloride 0.9% 1,000 ML IV SCH (14:07)
[2023-06-14] MEDS: Enoxaparin 40 MG/0.4 ML Syringe SUBCUT SCH (19:40)
[2023-06-14] MEDS: Tamsulosin 0.4 MG Cap.ER PO SCH (19:41)
[2023-06-14] MEDS: Nystatin Topical Powder 15 GM Bottle TOP PRN (20:53)
[2023-06-14] MEDS ORDERED: Furosemide 40 MG/4 ML VIAL IVPUSH SCH (22:57)
[2023-06-15] MEDS: Sodium Chloride 0.9% 1,000 ML IV SCH (02:51)
[2023-06-15] MEDS: Pantoprazole 40 MG Tab.CR PO SCH (06:11)
[2023-06-15] MEDS: Furosemide 40 MG/4 ML VIAL IVPUSH SCH (07:27)
[2023-06-15] MEDS: Polyethylene Glycol 3350 Powder 17 GM Packet PO SCH (07:27)
[2023-06-15] MEDS: Albuterol/Ipratropium 3.0-0.5 MG/3 ML Neb Soln NEB SCH ×4 (07:27→19:57)
[2023-06-15 07:29] LABS: BASOPHILS ABSOLUTE AUTO 0.02 10^3/uL (0.00-0.50); BASOPHILS PERCENT AUTO 0.3 % (0-1); EOSINOPHILS ABSOLUTE AUTO 0.08 10^3/uL (0.00-1.50); EOSINOPHILS PERCENT AUTO 1.3 % (0-6); HEMATOCRIT 29.1 % (42.0-52.0); HEMOGLOBIN 9.1 g/dL (14.0-18.0); IMMATURE GRAN ABSOLUTE AUTO 0.03 10^3/uL (0.00-0.49); IMMATURE GRAN PERCENT AUTO 0.5 % (0.0-4.9); LYMPHOCYTES ABSOLUTE AUTO 0.86 10^3/uL (0.60-5.00); LYMPHOCYTES PERCENT AUTO 14.3 % (24-44); MEAN CORPUSCULAR HEMOGLOBIN 22.2 pg (27.0-32.0); MEAN CORPUSCULAR HGB CONC 31.3 g/dL (32.0-36.0); MONOCYTES ABSOLUTE AUTO 0.78 10^3/uL (0.00-1.50); MONOCYTES PERCENT AUTO 12.9 % (0-10); NEUTROPHILS ABSOLUTE AUTO 4.26 x10^3/uL (1.80-8.00); NEUTROPHILS PERCENT AUTO 70.7 % (41-71); PLATELET COUNT,PLT 255 10^3/uL (150-400)
[2023-06-15] MEDS: Cholecalciferol (Vitamin D3) 25 MCG Tab PO SCH (07:30)
[2023-06-15] MEDS: Folic Acid 1 MG Tab PO SCH (07:31)
[2023-06-15] MEDS: Metoprolol Tartrate 25 MG Tab PO SCH ×2 (07:32→19:55)
[2023-06-15] MEDS: Diltiazem IR 30 MG Tab PO SCH ×4 (07:33→19:54)
[2023-06-15] MEDS: Acetaminophen 325 MG Tab PO SCH ×2 (07:33→19:53)
[2023-06-15] MEDS: Loratadine 10 MG Tab PO SCH (07:34)
[2023-06-15] MEDS: predniSONE 5 MG Tab PO SCH ×2 (07:34→19:55)
[2023-06-15] MEDS: Sennosides/Docusate Sodium 50-8.6 MG Tab PO SCH ×2 (07:34→19:54)
[2023-06-15] MEDS: Lisinopril 20 MG Tab PO SCH (07:34)
[2023-06-15] MEDS: traMADol 50 MG Tab PO SCH ×2 (07:35→19:55)
[2023-06-15] MEDS: amLODIPine 10 MG Tab PO SCH (07:35)
[2023-06-15] MEDS: atorvaSTATin 20 MG Tab PO SCH (07:35)
[2023-06-15] MEDS: Calcium Carbonate/Vitamin D3 1250 MG-5 MCG Tab PO SCH ×2 (07:36→19:55)
[2023-06-15] MEDS: Polyvinyl Alcohol 1.4% Ophth Soln 15 ML Bottle EYEBOTH SCH ×2 (07:41→20:02)
[2023-06-15 07:55] LABS: ALBUMIN 2.6 g/dL (3.4-5.0); BILIRUBIN TOTAL 0.5 mg/dL (0.0-1.0); C-REACTIVE PROTEIN 0.92 mg/dL (<=0.30); CALCIUM 8.4 mg/dL (8.4-10.1); CREATININE 1.3 mg/dL (0.7-1.3); EST CRCL DRUG DOSING (CG) 40.19 mL/min; POTASSIUM,K 3.5 mEq/L (3.5-5.0); PROTEIN TOTAL,TP 6.4 g/dL (6.4-8.2)
[2023-06-15] MEDS: metFORMIN 500 MG Tab PO SCH ×2 (08:08→17:07)
[2023-06-15] MEDS: Nystatin Topical Powder 15 GM Bottle TOP PRN (08:10)
[2023-06-15] MEDS: Insulin Regular, Human 100 Units/ML 3 ML Vial SUBCUT SCH ×4 (08:11→20:15)
[2023-06-15] MEDS: Insulin Glarg,Human.Rec.Analog 100 Unit/ML 10 ML Vial SUBCUT SCH (08:14)
[2023-06-15] MEDS: Furosemide 40 MG Tab PO SCH (16:12)
[2023-06-15] MEDS: Tamsulosin 0.4 MG Cap.ER PO SCH (19:53)
[2023-06-15] MEDS: Enoxaparin 40 MG/0.4 ML Syringe SUBCUT SCH (19:56)
[2023-06-15] MEDS ORDERED: Levofloxacin 500 MG Tab PO SCH (20:00)
[2023-06-15] MEDS ORDERED: Levofloxacin/Dextrose 5%-Water 750 MG in Premix Bag 1 BAG IV SCH ×2 (20:00→22:00)
[2023-06-16] MEDS: Acetaminophen 325 MG Tab PO PRN (00:18)
[2023-06-16] MEDS: Pantoprazole 40 MG Tab.CR PO SCH (06:32)
[2023-06-16] MEDS: Albuterol/Ipratropium 3.0-0.5 MG/3 ML Neb Soln NEB SCH (07:43)
[2023-06-16 07:44] LABS: ALBUMIN 2.6 g/dL (3.4-5.0); BASOPHILS ABSOLUTE AUTO 0.04 10^3/uL (0.00-0.50); BASOPHILS PERCENT AUTO 0.8 % (0-1); BILIRUBIN TOTAL 0.5 mg/dL (0.0-1.0); C-REACTIVE PROTEIN 0.94 mg/dL (<=0.30); CALCIUM 8.7 mg/dL (8.4-10.1); CREATININE 1.4 mg/dL (0.7-1.3); EOSINOPHILS ABSOLUTE AUTO 0.09 10^3/uL (0.00-1.50); EOSINOPHILS PERCENT AUTO 1.8 % (0-6); EST CRCL DRUG DOSING (CG) 37.32 mL/min; HEMATOCRIT 28.1 % (42.0-52.0); HEMOGLOBIN 8.9 g/dL (14.0-18.0); IMMATURE GRAN ABSOLUTE AUTO 0.04 10^3/uL (0.00-0.49); IMMATURE GRAN PERCENT AUTO 0.8 % (0.0-4.9); LYMPHOCYTES ABSOLUTE AUTO 0.65 10^3/uL (0.60-5.00); LYMPHOCYTES PERCENT AUTO 13.3 % (24-44); MEAN CORPUSCULAR HEMOGLOBIN 22.3 pg (27.0-32.0); MEAN CORPUSCULAR HGB CONC 31.7 g/dL (32.0-36.0); MEAN CORPUSCULAR VOLUME 70.4 fL (83.0-97.0); MONOCYTES PERCENT AUTO 14.3 % (0-10); NEUTROPHILS ABSOLUTE AUTO 3.38 x10^3/uL (1.80-8.00); PLATELET COUNT,PLT 262 10^3/uL (150-400); POTASSIUM,K 3.8 mEq/L (3.5-5.0); PROTEIN TOTAL,TP 6.5 g/dL (6.4-8.2); RED BLOOD CELL COUNT 3.99 x10^6/uL (4.50-6.00); WHITE BLOOD CELL COUNT,WBC 4.9 10^3/uL (4.0-11.0)
[2023-06-16] MEDS: Polyethylene Glycol 3350 Powder 17 GM Packet PO SCH (07:47)
[2023-06-16] MEDS: Metoprolol Tartrate 25 MG Tab PO SCH (07:48)
[2023-06-16] MEDS: Furosemide 40 MG Tab PO SCH (07:48)
[2023-06-16] MEDS: Folic Acid 1 MG Tab PO SCH (07:49)
[2023-06-16] MEDS: metFORMIN 500 MG Tab PO SCH (07:49)
[2023-06-16] MEDS: amLODIPine 10 MG Tab PO SCH (07:49)
[2023-06-16] MEDS: atorvaSTATin 20 MG Tab PO SCH (07:50)
[2023-06-16] MEDS: Loratadine 10 MG Tab PO SCH (07:50)
[2023-06-16] MEDS: traMADol 50 MG Tab PO SCH (07:51)
[2023-06-16] MEDS: Lisinopril 20 MG Tab PO SCH (07:51)
[2023-06-16] MEDS: Diltiazem IR 30 MG Tab PO SCH ×2 (07:51→11:21)
[2023-06-16] MEDS: Sennosides/Docusate Sodium 50-8.6 MG Tab PO SCH (07:51)
[2023-06-16] MEDS: predniSONE 5 MG Tab PO SCH (07:51)
[2023-06-16] MEDS: Acetaminophen 325 MG Tab PO SCH (07:52)
[2023-06-16] MEDS: Polyvinyl Alcohol 1.4% Ophth Soln 15 ML Bottle EYEBOTH SCH (07:53)
[2023-06-16] MEDS: Cholecalciferol (Vitamin D3) 25 MCG Tab PO SCH (07:55)
[2023-06-16] MEDS: Calcium Carbonate/Vitamin D3 1250 MG-5 MCG Tab PO SCH (07:55)
[2023-06-16] MEDS: Insulin Regular, Human 100 Units/ML 3 ML Vial SUBCUT SCH (07:59)
[2023-06-16] MEDS: Insulin Glarg,Human.Rec.Analog 100 Unit/ML 10 ML Vial SUBCUT SCH (08:00)
== END 2023-06-16 11:40 | disposition home or self-care (01) | DRG 194 ==
LOC: CC.ED 20:51 → UNDOADMIN 22:20 → CC.MS 22:20 → UNDODISIN 06-16 11:40
PROVIDERS: ADMIT Nurse Practitioner Family; ATTEND Nurse Practitioner Family
DX: J18.9 Pneumonia, unspecified organism (principal); E87.1 Hypo-osmolality and hyponatremia; I48.91 Unspecified atrial fibrillation; I11.0 Hypertensive heart disease with heart failure; I50.9 Heart failure, unspecified; L89.319 Pressure ulcer of right buttock, unspecified stage; L89.329 Pressure ulcer of left buttock, unspecified stage; M81.0 Age-related osteoporosis without current pathological fracture; L89.629 Pressure ulcer of left heel, unspecified stage; Z20.822 Contact with and (suspected) exposure to COVID-19; J44.9 Chronic obstructive pulmonary disease, unspecified; L89.622 Pressure ulcer of left heel, stage 2; E11.9 Type 2 diabetes mellitus without complications; Z88.1 Allergy status to other antibiotic agents; E78.00 Pure hypercholesterolemia, unspecified; Z79.4 Long term (current) use of insulin; Z85.46 Personal history of malignant neoplasm of prostate; Z86.16 Personal history of COVID-19; Z79.899 Other long term (current) drug therapy
CPT/HCPCS: 36415; 71045; 80053; 81001; 82947; 83605; 83880; 84484; 85025; 86140; 87040; 93005; 93010; 94640; 96360; 97161-GP; 97530-GP; 99285-25; A9270-GY; J1650; J1815-GY; J1940; J1956; J3490; J7030; J7040; J7512; J7620-GY; U0002

== ENCOUNTER 2023-07-11 10:40 | Inpatient (IN) | payer MEDICARE, BC ==
[2023-07-11] MEDS ORDERED: Acetaminophen 500 MG Tab PO ONE (11:00)
[2023-07-11] MEDS ORDERED: Diltiazem 25 MG/5 ML SDV IVPUSH ONE (11:19)
[2023-07-11 11:30] LABS: BASOPHILS ABSOLUTE AUTO 0.03 10^3/uL (0.00-0.50); BASOPHILS PERCENT AUTO 0.5 % (0-1); EOSINOPHILS ABSOLUTE AUTO 0.08 10^3/uL (0.00-1.50); EOSINOPHILS PERCENT AUTO 1.4 % (0-6); HEMATOCRIT 29.3 % (42.0-52.0); HEMOGLOBIN 9.2 g/dL (14.0-18.0); IMMATURE GRAN ABSOLUTE AUTO 0.05 10^3/uL (0.00-0.49); IMMATURE GRAN PERCENT AUTO 0.9 % (0.0-4.9); LYMPHOCYTES ABSOLUTE AUTO 0.42 10^3/uL (0.60-5.00); LYMPHOCYTES PERCENT AUTO 7.6 % (24-44); MEAN CORPUSCULAR HEMOGLOBIN 22.6 pg (27.0-32.0); MEAN CORPUSCULAR HGB CONC 31.4 g/dL (32.0-36.0); MONOCYTES ABSOLUTE AUTO 1.01 10^3/uL (0.00-1.50); MONOCYTES PERCENT AUTO 18.2 % (0-10); NEUTROPHILS ABSOLUTE AUTO 3.97 x10^3/uL (1.80-8.00); NEUTROPHILS PERCENT AUTO 71.4 % (41-71); PLATELET COUNT,PLT 280 10^3/uL (150-400); RED BLOOD CELL COUNT 4.07 x10^6/uL (4.50-6.00); WHITE BLOOD CELL COUNT,WBC 5.6 10^3/uL (4.0-11.0)
[2023-07-11] MEDS ORDERED: Diltiazem 25 MG/5 ML SDV ONE (11:38)
[2023-07-11 11:45] LABS: INR 1.04 (0.92-1.18); PROTHROMBIN TIME 10.7 SEC (9.3-11.3); PTT,PARTIAL THROMBOPLSTIN TIME 26.3 SEC (20.0-30.0)
[2023-07-11 11:46] LABS: ALBUMIN 2.8 g/dL (3.4-5.0); BILIRUBIN TOTAL 0.4 mg/dL (0.0-1.0); CALCIUM 8.8 mg/dL (8.4-10.1); CREATININE 1.6 mg/dL (0.7-1.3); EST CRCL DRUG DOSING (CG) 34.85 mL/min; LACTIC ACID 1.4 mmol/L (0.4-2.0); MAGNESIUM 1.4 mg/dL (1.8-2.4); POTASSIUM,K 3.6 mEq/L (3.5-5.0); PROTEIN TOTAL,TP 7.5 g/dL (6.4-8.2)
[2023-07-11] MEDS ORDERED: Magnesium Sulfate/Water 2 GM in Premix Bag 1 BAG IV ONE (12:07)
[2023-07-11] MEDS ORDERED: Metoprolol Tartrate 25 MG Tab PO ONE (12:08)
[2023-07-11] MEDS ORDERED: Docusate Sodium 100 MG Cap PO PRN (13:43)
[2023-07-11] MEDS ORDERED: 50% Dextrose in Water 50 ML Syringe IVPUSH PRN (13:43)
[2023-07-11] MEDS ORDERED: Acetaminophen 325 MG Tab PO PRN (13:43)
[2023-07-11] MEDS ORDERED: Temazepam 15 MG Cap PO PRN (13:43)
[2023-07-11] MEDS ORDERED: Glucagon,Human Recombinant 1 MG Vial IM PRN (13:43)
[2023-07-11] MEDS ORDERED: Polyethylene Glycol 3350 Powder 17 GM Packet PO PRN (13:43)
[2023-07-11] MEDS ORDERED: Albuterol 0.083% 2.5 MG/3 ML Neb Soln NEB PRN (13:43)
[2023-07-11] MEDS: Sodium Chloride 0.9% 1,000 ML IV SCH (14:27)
[2023-07-11] MEDS: Nystatin Topical Powder 15 GM Bottle TOP SCH ×2 (14:28→20:00)
[2023-07-11] MEDS: Diltiazem IR 30 MG Tab PO SCH ×2 (16:34→19:52)
[2023-07-11] MEDS: Furosemide 40 MG Tab PO SCH (16:35)
[2023-07-11 17:29] LABS: APPEARANCE,URINE SLIGHTLY CLOUDY (CLEAR); BILIRUBIN,URINE NEGATIVE (NEGATIVE); COLOR,URINE YELLOW (YELLOW); GLUCOSE,URINE NEGATIVE (NEGATIVE); KETONES,URINE NEGATIVE (NEGATIVE); LEUKOCYTE ESTERASE,URINE LARGE (NEGATIVE); NITRITE,URINE NEGATIVE (NEGATIVE); OCCULT BLOOD,URINE MODERATE (NEGATIVE); PROTEIN,URINE 100 mg/dL (NEGATIVE); UROBILINOGEN,URINE 0.2 EU/dL (0.2-1.0)
[2023-07-11] MEDS: metFORMIN 500 MG Tab PO SCH (17:32)
[2023-07-11] MEDS: Insulin Lispro 100 Units/ML 3 ML Vial SUBCUT SCH ×2 (17:34→20:01)
[2023-07-11 17:38] LABS: BACTERIA,URINE FEW /HPF (NOT SEEN); EPITHELIAL CELLS,URINE NOT SEEN /HPF (NOT SEEN); MUCUS,URINE FEW /HPF (NOT SEEN); RBC,URINE 40-50 /HPF (0-5); WBC,URINE >100 /HPF (0-5)
[2023-07-11] MEDS: Tamsulosin 0.4 MG Cap.ER PO SCH (19:52)
[2023-07-11] MEDS: Metoprolol Tartrate 25 MG Tab PO SCH (19:52)
[2023-07-11] MEDS: traMADol 50 MG Tab PO SCH (19:53)
[2023-07-11] MEDS: predniSONE 5 MG Tab PO SCH (19:53)
[2023-07-11] MEDS ORDERED: Non-Formulary Medication 1 Each (Carboxymethylcellulose Sodium [Artificial Tears] 15 ML Dr EYEBOTH SCH (20:00)
[2023-07-11] MEDS ORDERED: Non-Formulary Medication 1 Each (Saliva Substitute Combo No.9 [Biotene] 1,000 ML Mouthwash PO SCH (20:00)
[2023-07-12] MEDS: Sodium Chloride 0.9% 1,000 ML IV SCH (03:40)
[2023-07-12] MEDS ORDERED: Lisinopril 20 MG Tab PO SCH (08:00)
[2023-07-12] MEDS ORDERED: Non-Formulary Medication 1 Each (Cetirizine [Zyrtec] 10 MG Tablet) PO SCH (08:00)
[2023-07-12] MEDS ORDERED: Non-Formulary Medication 1 Each (Folic Acid [Folic Acid] 0.4 MG Tablet) PO SCH (08:00)
[2023-07-12] MEDS ORDERED: Non-Formulary Medication 1 Each (Amlodipine Besylate/Benazepril [Amlodipine-Benazepril 10- PO SCH (08:00)
[2023-07-12 08:03] LABS: BASOPHILS ABSOLUTE AUTO 0.03 10^3/uL (0.00-0.50); BASOPHILS PERCENT AUTO 0.6 % (0-1); EOSINOPHILS ABSOLUTE AUTO 0.08 10^3/uL (0.00-1.50); EOSINOPHILS PERCENT AUTO 1.5 % (0-6); HEMATOCRIT 28.7 % (42.0-52.0); IMMATURE GRAN ABSOLUTE AUTO 0.07 10^3/uL (0.00-0.49); IMMATURE GRAN PERCENT AUTO 1.3 % (0.0-4.9); LYMPHOCYTES ABSOLUTE AUTO 0.54 10^3/uL (0.60-5.00); LYMPHOCYTES PERCENT AUTO 10.2 % (24-44); MEAN CORPUSCULAR HEMOGLOBIN 22.7 pg (27.0-32.0); MEAN CORPUSCULAR HGB CONC 31.4 g/dL (32.0-36.0); MEAN CORPUSCULAR VOLUME 72.5 fL (83.0-97.0); MONOCYTES ABSOLUTE AUTO 0.96 10^3/uL (0.00-1.50); MONOCYTES PERCENT AUTO 18.2 % (0-10); NEUTROPHILS PERCENT AUTO 68.2 % (41-71); PLATELET COUNT,PLT 274 10^3/uL (150-400); RED BLOOD CELL COUNT 3.96 x10^6/uL (4.50-6.00); WHITE BLOOD CELL COUNT,WBC 5.3 10^3/uL (4.0-11.0)
[2023-07-12] MEDS: traMADol 50 MG Tab PO SCH ×2 (08:13→19:47)
[2023-07-12] MEDS: predniSONE 5 MG Tab PO SCH ×2 (08:13→19:47)
[2023-07-12] MEDS: amLODIPine 10 MG Tab PO SCH (08:14)
[2023-07-12] MEDS: atorvaSTATin 20 MG Tab PO SCH (08:14)
[2023-07-12] MEDS: metFORMIN 500 MG Tab PO SCH ×2 (08:14→17:19)
[2023-07-12] MEDS: Cholecalciferol (Vitamin D3) 5,000 UNIT Tab PO SCH (08:15)
[2023-07-12] MEDS: Metoprolol Tartrate 25 MG Tab PO SCH ×2 (08:15→19:44)
[2023-07-12] MEDS: Furosemide 40 MG Tab PO SCH ×2 (08:17→16:57)
[2023-07-12] MEDS: Diltiazem IR 30 MG Tab PO SCH ×4 (08:17→19:48)
[2023-07-12] MEDS: Nystatin Topical Powder 15 GM Bottle TOP SCH ×3 (08:18→19:55)
[2023-07-12] MEDS: Lisinopril 20 MG Tab PO SCH (08:18)
[2023-07-12] MEDS: Pantoprazole 40 MG Tab.CR PO SCH (08:19)
[2023-07-12 08:21] LABS: ALBUMIN 2.5 g/dL (3.4-5.0); BILIRUBIN TOTAL 0.3 mg/dL (0.0-1.0); CALCIUM 8.7 mg/dL (8.4-10.1); CREATININE 1.5 mg/dL (0.7-1.3); EST CRCL DRUG DOSING (CG) 37.18 mL/min; POTASSIUM,K 4.2 mEq/L (3.5-5.0); PROTEIN TOTAL,TP 6.9 g/dL (6.4-8.2)
[2023-07-12] MEDS: Insulin Lispro 100 Units/ML 3 ML Vial SUBCUT SCH ×4 (08:57→20:01)
[2023-07-12] MEDS ORDERED: Metoprolol Tartrate 5 MG/5 ML SDV IVPUSH ONE (09:51)
[2023-07-12] MEDS ORDERED: Levofloxacin 500 MG Tab PO SCH (10:30)
[2023-07-12] MEDS: Tamsulosin 0.4 MG Cap.ER PO SCH (19:47)
[2023-07-13] MEDS: Diltiazem IR 30 MG Tab PO SCH ×4 (07:06→19:56)
[2023-07-13] MEDS: Cholecalciferol (Vitamin D3) 5,000 UNIT Tab PO SCH (07:06)
[2023-07-13] MEDS: Pantoprazole 40 MG Tab.CR PO SCH (07:06)
[2023-07-13] MEDS: predniSONE 5 MG Tab PO SCH ×2 (07:07→19:49)
[2023-07-13] MEDS: atorvaSTATin 20 MG Tab PO SCH (07:07)
[2023-07-13] MEDS: Lisinopril 20 MG Tab PO SCH (07:07)
[2023-07-13] MEDS: Furosemide 40 MG Tab PO SCH ×2 (07:07→15:51)
[2023-07-13] MEDS: amLODIPine 10 MG Tab PO SCH (07:07)
[2023-07-13] MEDS: traMADol 50 MG Tab PO SCH ×2 (07:08→19:49)
[2023-07-13] MEDS: Metoprolol Tartrate 25 MG Tab PO SCH ×2 (07:08→19:50)
[2023-07-13 07:48] LABS: BASOPHILS ABSOLUTE AUTO 0.02 10^3/uL (0.00-0.50); BASOPHILS PERCENT AUTO 0.4 % (0-1); EOSINOPHILS ABSOLUTE AUTO 0.09 10^3/uL (0.00-1.50); EOSINOPHILS PERCENT AUTO 1.8 % (0-6); HEMATOCRIT 26.7 % (42.0-52.0); HEMOGLOBIN 8.4 g/dL (14.0-18.0); IMMATURE GRAN ABSOLUTE AUTO 0.08 10^3/uL (0.00-0.49); IMMATURE GRAN PERCENT AUTO 1.6 % (0.0-4.9); LYMPHOCYTES ABSOLUTE AUTO 0.38 10^3/uL (0.60-5.00); LYMPHOCYTES PERCENT AUTO 7.5 % (24-44); MEAN CORPUSCULAR HEMOGLOBIN 22.7 pg (27.0-32.0); MEAN CORPUSCULAR HGB CONC 31.5 g/dL (32.0-36.0); MEAN CORPUSCULAR VOLUME 72.2 fL (83.0-97.0); MONOCYTES ABSOLUTE AUTO 0.87 10^3/uL (0.00-1.50); MONOCYTES PERCENT AUTO 17.1 % (0-10); NEUTROPHILS ABSOLUTE AUTO 3.66 x10^3/uL (1.80-8.00); NEUTROPHILS PERCENT AUTO 71.6 % (41-71); PLATELET COUNT,PLT 283 10^3/uL (150-400); WHITE BLOOD CELL COUNT,WBC 5.1 10^3/uL (4.0-11.0)
[2023-07-13] MEDS: metFORMIN 500 MG Tab PO SCH ×2 (08:11→17:15)
[2023-07-13] MEDS: Nystatin Topical Powder 15 GM Bottle TOP SCH ×3 (08:12→19:49)
[2023-07-13] MEDS: Insulin Lispro 100 Units/ML 3 ML Vial SUBCUT SCH ×4 (08:20→20:12)
[2023-07-13 08:46] LABS: ALBUMIN 2.2 g/dL (3.4-5.0); BILIRUBIN TOTAL 0.3 mg/dL (0.0-1.0); CALCIUM 8.4 mg/dL (8.4-10.1); CREATININE 1.6 mg/dL (0.7-1.3); EST CRCL DRUG DOSING (CG) 34.85 mL/min; POTASSIUM,K 3.8 mEq/L (3.5-5.0); PROTEIN TOTAL,TP 6.6 g/dL (6.4-8.2)
[2023-07-13] MEDS ORDERED: VANCOmycin 1.75 GM/350 ML 1.75 GM in Premix Bag 1 BAG IV ONE (10:00)
[2023-07-13] MEDS: Tamsulosin 0.4 MG Cap.ER PO SCH (19:49)
[2023-07-13] MEDS ORDERED: Diltiazem IR 30 MG Tab ONE (19:52)
[2023-07-13] MEDS ORDERED: hydrOXYzine HCl 25 MG Tab PO ONE (20:21)
[2023-07-14] MEDS: Diltiazem IR 30 MG Tab PO SCH ×4 (07:34→19:54)
[2023-07-14] MEDS: traMADol 50 MG Tab PO SCH ×2 (07:34→19:55)
[2023-07-14] MEDS: Cholecalciferol (Vitamin D3) 5,000 UNIT Tab PO SCH (07:34)
[2023-07-14] MEDS: Pantoprazole 40 MG Tab.CR PO SCH (07:35)
[2023-07-14] MEDS: predniSONE 5 MG Tab PO SCH ×2 (07:35→19:55)
[2023-07-14] MEDS: metFORMIN 500 MG Tab PO SCH ×2 (07:35→17:10)
[2023-07-14] MEDS: Metoprolol Tartrate 25 MG Tab PO SCH ×2 (07:36→19:54)
[2023-07-14] MEDS: Furosemide 40 MG Tab PO SCH ×2 (07:36→16:26)
[2023-07-14] MEDS: Insulin Lispro 100 Units/ML 3 ML Vial SUBCUT SCH ×4 (07:37→20:00)
[2023-07-14] MEDS: atorvaSTATin 20 MG Tab PO SCH (07:37)
[2023-07-14] MEDS: amLODIPine 10 MG Tab PO SCH (07:41)
[2023-07-14] MEDS: Lisinopril 20 MG Tab PO SCH (07:41)
[2023-07-14 09:48] LABS: BASOPHILS ABSOLUTE AUTO 0.03 10^3/uL (0.00-0.50); BASOPHILS PERCENT AUTO 0.6 % (0-1); EOSINOPHILS ABSOLUTE AUTO 0.16 10^3/uL (0.00-1.50); EOSINOPHILS PERCENT AUTO 2.9 % (0-6); HEMATOCRIT 28.4 % (42.0-52.0); HEMOGLOBIN 8.9 g/dL (14.0-18.0); IMMATURE GRAN ABSOLUTE AUTO 0.08 10^3/uL (0.00-0.49); IMMATURE GRAN PERCENT AUTO 1.5 % (0.0-4.9); LYMPHOCYTES ABSOLUTE AUTO 0.32 10^3/uL (0.60-5.00); LYMPHOCYTES PERCENT AUTO 5.9 % (24-44); MEAN CORPUSCULAR HEMOGLOBIN 22.6 pg (27.0-32.0); MEAN CORPUSCULAR HGB CONC 31.3 g/dL (32.0-36.0); MEAN CORPUSCULAR VOLUME 72.3 fL (83.0-97.0); MONOCYTES ABSOLUTE AUTO 0.78 10^3/uL (0.00-1.50); MONOCYTES PERCENT AUTO 14.4 % (0-10); NEUTROPHILS ABSOLUTE AUTO 4.06 x10^3/uL (1.80-8.00); NEUTROPHILS PERCENT AUTO 74.7 % (41-71); PLATELET COUNT,PLT 282 10^3/uL (150-400); RED BLOOD CELL COUNT 3.93 x10^6/uL (4.50-6.00); WHITE BLOOD CELL COUNT,WBC 5.4 10^3/uL (4.0-11.0)
[2023-07-14] MEDS: Nystatin Topical Powder 15 GM Bottle TOP SCH ×2 (10:19→16:28)
[2023-07-14 10:30] LABS: ALBUMIN 2.6 g/dL (3.4-5.0); BILIRUBIN TOTAL 0.4 mg/dL (0.0-1.0); CALCIUM 8.6 mg/dL (8.4-10.1); CREATININE 1.5 mg/dL (0.7-1.3); EST CRCL DRUG DOSING (CG) 37.18 mL/min; MAGNESIUM 1.5 mg/dL (1.8-2.4); PROTEIN TOTAL,TP 6.6 g/dL (6.4-8.2)
[2023-07-14] MEDS ORDERED: Oxyquinoline/Emollient 0.3% Oint 4 OZ Canister TOP PRN (11:04)
[2023-07-14] MEDS: Tamsulosin 0.4 MG Cap.ER PO SCH (19:54)
[2023-07-15] MEDS: metFORMIN 500 MG Tab PO SCH ×2 (07:35→16:40)
[2023-07-15] MEDS: Pantoprazole 40 MG Tab.CR PO SCH (07:35)
[2023-07-15] MEDS: predniSONE 5 MG Tab PO SCH ×2 (07:35→19:26)
[2023-07-15] MEDS: amLODIPine 10 MG Tab PO SCH (07:35)
[2023-07-15] MEDS: Furosemide 40 MG Tab PO SCH ×2 (07:35→16:41)
[2023-07-15] MEDS: atorvaSTATin 20 MG Tab PO SCH (07:35)
[2023-07-15] MEDS: Cholecalciferol (Vitamin D3) 5,000 UNIT Tab PO SCH (07:35)
[2023-07-15] MEDS: Metoprolol Tartrate 25 MG Tab PO SCH ×2 (07:36→19:25)
[2023-07-15] MEDS: traMADol 50 MG Tab PO SCH ×2 (07:36→19:26)
[2023-07-15] MEDS: Diltiazem IR 30 MG Tab PO SCH ×4 (07:36→19:24)
[2023-07-15] MEDS: Lisinopril 20 MG Tab PO SCH (07:36)
[2023-07-15 08:21] LABS: BASOPHILS ABSOLUTE AUTO 0.04 10^3/uL (0.00-0.50); BASOPHILS PERCENT AUTO 0.7 % (0-1); EOSINOPHILS PERCENT AUTO 1.8 % (0-6); HEMATOCRIT 27.3 % (42.0-52.0); HEMOGLOBIN 8.6 g/dL (14.0-18.0); IMMATURE GRAN ABSOLUTE AUTO 0.12 10^3/uL (0.00-0.49); IMMATURE GRAN PERCENT AUTO 2.1 % (0.0-4.9); LYMPHOCYTES ABSOLUTE AUTO 0.56 10^3/uL (0.60-5.00); MEAN CORPUSCULAR HEMOGLOBIN 22.8 pg (27.0-32.0); MEAN CORPUSCULAR HGB CONC 31.5 g/dL (32.0-36.0); MEAN CORPUSCULAR VOLUME 72.2 fL (83.0-97.0); MONOCYTES ABSOLUTE AUTO 0.65 10^3/uL (0.00-1.50); MONOCYTES PERCENT AUTO 11.6 % (0-10); NEUTROPHILS ABSOLUTE AUTO 4.15 x10^3/uL (1.80-8.00); NEUTROPHILS PERCENT AUTO 73.8 % (41-71); PLATELET COUNT,PLT 322 10^3/uL (150-400); RED BLOOD CELL COUNT 3.78 x10^6/uL (4.50-6.00); WHITE BLOOD CELL COUNT,WBC 5.6 10^3/uL (4.0-11.0)
[2023-07-15 08:32] LABS: CALCIUM 8.8 mg/dL (8.4-10.1); CREATININE 1.7 mg/dL (0.7-1.3); EST CRCL DRUG DOSING (CG) 32.8 mL/min; MAGNESIUM 1.5 mg/dL (1.8-2.4); POTASSIUM,K 4.7 mEq/L (3.5-5.0)
[2023-07-15] MEDS: Insulin Lispro 100 Units/ML 3 ML Vial SUBCUT SCH ×4 (08:42→21:04)
[2023-07-15] MEDS ORDERED: Magnesium Sulfate/Water 2 GM in Premix Bag 1 BAG IV ONE (09:30)
[2023-07-15] MEDS ORDERED: VANCOmycin 1 GM/200 ML 1 GM in Premix Bag 1 BAG IV SCH (12:00)
[2023-07-15] MEDS: Tamsulosin 0.4 MG Cap.ER PO SCH (19:25)
[2023-07-16] MEDS: Cholecalciferol (Vitamin D3) 5,000 UNIT Tab PO SCH (07:49)
[2023-07-16] MEDS: traMADol 50 MG Tab PO SCH ×2 (07:49→20:04)
[2023-07-16] MEDS: Metoprolol Tartrate 25 MG Tab PO SCH ×2 (07:50→20:04)
[2023-07-16] MEDS: metFORMIN 500 MG Tab PO SCH ×2 (07:50→17:36)
[2023-07-16] MEDS: Pantoprazole 40 MG Tab.CR PO SCH (07:50)
[2023-07-16] MEDS: Furosemide 40 MG Tab PO SCH ×2 (07:51→17:36)
[2023-07-16] MEDS: Lisinopril 20 MG Tab PO SCH (07:51)
[2023-07-16] MEDS: amLODIPine 10 MG Tab PO SCH (07:51)
[2023-07-16] MEDS: predniSONE 5 MG Tab PO SCH ×2 (07:51→20:04)
[2023-07-16] MEDS: atorvaSTATin 20 MG Tab PO SCH (07:51)
[2023-07-16] MEDS: Diltiazem IR 30 MG Tab PO SCH ×5 (07:51→20:04)
[2023-07-16] MEDS: Insulin Lispro 100 Units/ML 3 ML Vial SUBCUT SCH ×4 (07:54→20:07)
[2023-07-16 08:15] LABS: BASOPHILS ABSOLUTE AUTO 0.04 10^3/uL (0.00-0.50); BASOPHILS PERCENT AUTO 0.6 % (0-1); EOSINOPHILS ABSOLUTE AUTO 0.12 10^3/uL (0.00-1.50); EOSINOPHILS PERCENT AUTO 1.7 % (0-6); HEMATOCRIT 27.8 % (42.0-52.0); HEMOGLOBIN 8.8 g/dL (14.0-18.0); IMMATURE GRAN ABSOLUTE AUTO 0.18 10^3/uL (0.00-0.49); IMMATURE GRAN PERCENT AUTO 2.6 % (0.0-4.9); LYMPHOCYTES ABSOLUTE AUTO 0.53 10^3/uL (0.60-5.00); LYMPHOCYTES PERCENT AUTO 7.6 % (24-44); MEAN CORPUSCULAR HEMOGLOBIN 22.7 pg (27.0-32.0); MEAN CORPUSCULAR HGB CONC 31.7 g/dL (32.0-36.0); MEAN CORPUSCULAR VOLUME 71.6 fL (83.0-97.0); MONOCYTES ABSOLUTE AUTO 0.51 10^3/uL (0.00-1.50); MONOCYTES PERCENT AUTO 7.3 % (0-10); NEUTROPHILS PERCENT AUTO 80.2 % (41-71); PLATELET COUNT,PLT 317 10^3/uL (150-400); RED BLOOD CELL COUNT 3.88 x10^6/uL (4.50-6.00)
[2023-07-16 08:45] LABS: CALCIUM 8.8 mg/dL (8.4-10.1); CREATININE 1.6 mg/dL (0.7-1.3); EST CRCL DRUG DOSING (CG) 34.85 mL/min; MAGNESIUM 1.6 mg/dL (1.8-2.4); POTASSIUM,K 3.8 mEq/L (3.5-5.0)
[2023-07-16] MEDS ORDERED: VANCOmycin 1 GM/200 ML 1 GM in Premix Bag 1 BAG IV SCH (10:00)
[2023-07-16] MEDS ORDERED: VANCOmycin 1 GM/200 ML 1 GM in Premix Bag 1 BAG IV ONE (10:00)
[2023-07-16] MEDS: Tamsulosin 0.4 MG Cap.ER PO SCH (20:04)
[2023-07-17] MEDS: Pantoprazole 40 MG Tab.CR PO SCH (08:05)
[2023-07-17] MEDS: Diltiazem IR 30 MG Tab PO SCH ×2 (08:05→12:16)
[2023-07-17] MEDS: atorvaSTATin 20 MG Tab PO SCH (08:06)
[2023-07-17] MEDS: Cholecalciferol (Vitamin D3) 5,000 UNIT Tab PO SCH (08:06)
[2023-07-17] MEDS: Furosemide 40 MG Tab PO SCH (08:06)
[2023-07-17] MEDS: Metoprolol Tartrate 25 MG Tab PO SCH (08:06)
[2023-07-17] MEDS: amLODIPine 10 MG Tab PO SCH (08:08)
[2023-07-17] MEDS: traMADol 50 MG Tab PO SCH (08:08)
[2023-07-17] MEDS: predniSONE 5 MG Tab PO SCH (08:08)
[2023-07-17] MEDS: Lisinopril 20 MG Tab PO SCH (08:09)
[2023-07-17] MEDS: metFORMIN 500 MG Tab PO SCH (08:09)
[2023-07-17] MEDS: Insulin Lispro 100 Units/ML 3 ML Vial SUBCUT SCH ×2 (08:18→12:16)
[2023-07-17] MEDS ORDERED: VANCOmycin 1 GM/200 ML 1 GM in Premix Bag 1 BAG IV SCH (12:00)
== END 2023-07-17 12:50 | disposition swing bed (61) | DRG 308 ==
LOC: CC.ED 10:40 → CC.MS 13:28 → CC.ED 13:47 → UNDOADMIN 13:50 → CC.MS 13:50
PROVIDERS: ADMIT Physician Assistant Medical; ATTEND Physician Assistant Medical
DX: I48.91 Unspecified atrial fibrillation (principal); I50.41 Acute combined systolic (congestive) and diastolic (congestive) heart failure; E87.1 Hypo-osmolality and hyponatremia; L89.629 Pressure ulcer of left heel, unspecified stage; L89.899 Pressure ulcer of other site, unspecified stage; N17.9 Acute kidney failure, unspecified; I11.0 Hypertensive heart disease with heart failure; I50.9 Heart failure, unspecified; E11.9 Type 2 diabetes mellitus without complications; C61 Malignant neoplasm of prostate; C79.51 Secondary malignant neoplasm of bone; N30.01 Acute cystitis with hematuria; I13.0 Hypertensive heart and chronic kidney disease with heart failure and stage 1 through stage 4 chronic kidney disease, or unspecified chronic kidney disease; R78.81 Bacteremia; E78.00 Pure hypercholesterolemia, unspecified; J44.9 Chronic obstructive pulmonary disease, unspecified; E83.42 Hypomagnesemia; E11.22 Type 2 diabetes mellitus with diabetic chronic kidney disease; N18.32 Chronic kidney disease, stage 3b; M81.0 Age-related osteoporosis without current pathological fracture; M19.90 Unspecified osteoarthritis, unspecified site; B95.62 Methicillin resistant Staphylococcus aureus infection as the cause of diseases classified elsewhere; Z88.1 Allergy status to other antibiotic agents; Z86.16 Personal history of COVID-19; Z85.46 Personal history of malignant neoplasm of prostate; Z85.830 Personal history of malignant neoplasm of bone; Z86.73 Personal history of transient ischemic attack (TIA), and cerebral infarction without residual deficits; Z79.4 Long term (current) use of insulin; Z79.84 Long term (current) use of oral hypoglycemic drugs; Z79.899 Other long term (current) drug therapy
CPT/HCPCS: 36415; 71045; 80048; 80053; 80202; 81001; 82947; 83605; 83735; 83880; 84484; 85025; 85610; 85730; 87040; 87077; 87086; 87088; 87186; 93005; 93010; 93306; 96365; 96375; 99223; 99232; 99233; 99238; 99285-25; A9270-GY; J0712; J1642; J1815-GY; J3370; J3475; J3490; J7030; J7050; J7512

== ENCOUNTER 2023-07-17 12:20 | Inpatient (IN) | payer MEDICARE, BC ==
[2023-07-17] MEDS ORDERED: Temazepam 15 MG Cap PO PRN (13:26)
[2023-07-17] MEDS ORDERED: Polyethylene Glycol 3350 Powder 17 GM Packet PO PRN (13:26)
[2023-07-17] MEDS ORDERED: Acetaminophen 325 MG Tab PO PRN (13:26)
[2023-07-17] MEDS ORDERED: 50% Dextrose in Water 50 ML Syringe IVPUSH PRN (13:26)
[2023-07-17] MEDS ORDERED: Albuterol 0.083% 2.5 MG/3 ML Neb Soln NEB PRN (13:26)
[2023-07-17] MEDS ORDERED: Glucagon,Human Recombinant 1 MG Vial IM PRN ×2 (13:26)
[2023-07-17] MEDS ORDERED: Docusate Sodium 100 MG Cap PO PRN (13:26)
[2023-07-17] MEDS ORDERED: Oxyquinoline/Emollient 0.3% Oint 4 OZ Canister TOP PRN (13:26)
[2023-07-17] MEDS: Diltiazem IR 30 MG Tab PO SCH ×2 (16:26→19:35)
[2023-07-17] MEDS: Furosemide 40 MG Tab PO SCH (16:26)
[2023-07-17] MEDS: predniSONE 5 MG Tab PO SCH (16:32)
[2023-07-17] MEDS: metFORMIN 500 MG Tab PO SCH (17:57)
[2023-07-17] MEDS: Insulin Lispro 100 Units/ML 3 ML Vial SUBCUT SCH ×2 (18:02→20:39)
[2023-07-17] MEDS: traMADol 50 MG Tab PO SCH (19:35)
[2023-07-17] MEDS: Metoprolol Tartrate 25 MG Tab PO SCH (19:35)
[2023-07-17] MEDS: Tamsulosin 0.4 MG Cap.ER PO SCH (19:35)
[2023-07-18] MEDS: Furosemide 40 MG Tab PO SCH ×2 (07:39→17:20)
[2023-07-18] MEDS: Diltiazem IR 30 MG Tab PO SCH ×4 (07:39→20:40)
[2023-07-18] MEDS: atorvaSTATin 20 MG Tab PO SCH (07:39)
[2023-07-18] MEDS: traMADol 50 MG Tab PO SCH ×2 (07:39→20:40)
[2023-07-18] MEDS: Pantoprazole 40 MG Tab.CR PO SCH (07:39)
[2023-07-18] MEDS: metFORMIN 500 MG Tab PO SCH ×2 (07:39→17:20)
[2023-07-18] MEDS: Cholecalciferol (Vitamin D3) 5,000 UNIT Tab PO SCH (07:39)
[2023-07-18] MEDS: Metoprolol Tartrate 25 MG Tab PO SCH ×2 (07:43→20:38)
[2023-07-18] MEDS: amLODIPine 10 MG Tab PO SCH (07:44)
[2023-07-18] MEDS: Lisinopril 20 MG Tab PO SCH (07:44)
[2023-07-18] MEDS: Insulin Lispro 100 Units/ML 3 ML Vial SUBCUT SCH ×4 (08:21→20:37)
[2023-07-18] MEDS: predniSONE 5 MG Tab PO SCH ×2 (08:24→17:20)
[2023-07-18] MEDS: VANCOmycin 1 GM/200 ML 1 GM in Premix Bag 1 BAG IV SCH (12:22)
[2023-07-18] MEDS: Tamsulosin 0.4 MG Cap.ER PO SCH (20:38)
[2023-07-19] MEDS: Metoprolol Tartrate 25 MG Tab PO SCH ×2 (07:39→19:42)
[2023-07-19] MEDS: Pantoprazole 40 MG Tab.CR PO SCH (07:40)
[2023-07-19] MEDS: traMADol 50 MG Tab PO SCH ×2 (07:40→19:42)
[2023-07-19] MEDS: atorvaSTATin 20 MG Tab PO SCH (07:40)
[2023-07-19] MEDS: amLODIPine 10 MG Tab PO SCH (07:40)
[2023-07-19] MEDS: Diltiazem IR 30 MG Tab PO SCH ×4 (07:40→19:45)
[2023-07-19] MEDS: Lisinopril 20 MG Tab PO SCH (07:40)
[2023-07-19] MEDS: Furosemide 40 MG Tab PO SCH ×2 (07:40→16:24)
[2023-07-19] MEDS: Cholecalciferol (Vitamin D3) 5,000 UNIT Tab PO SCH (07:40)
[2023-07-19] MEDS: Insulin Lispro 100 Units/ML 3 ML Vial SUBCUT SCH ×4 (07:41→20:58)
[2023-07-19] MEDS: metFORMIN 500 MG Tab PO SCH ×2 (07:41→17:45)
[2023-07-19] MEDS: predniSONE 5 MG Tab PO SCH ×2 (07:43→16:24)
[2023-07-19 07:47] LABS: CALCIUM 8.7 mg/dL (8.4-10.1); CREATININE 1.7 mg/dL (0.7-1.3); EST CRCL DRUG DOSING (CG) 32.8 mL/min; POTASSIUM,K 3.6 mEq/L (3.5-5.0)
[2023-07-19] MEDS: VANCOmycin 1 GM/200 ML 1 GM in Premix Bag 1 BAG IV SCH (11:58)
[2023-07-19] MEDS: Tamsulosin 0.4 MG Cap.ER PO SCH (19:41)
[2023-07-20] MEDS: Insulin Lispro 100 Units/ML 3 ML Vial SUBCUT SCH ×4 (08:28→20:35)
[2023-07-20] MEDS: Lisinopril 20 MG Tab PO SCH (08:28)
[2023-07-20] MEDS: metFORMIN 500 MG Tab PO SCH ×2 (08:29→17:32)
[2023-07-20] MEDS: Pantoprazole 40 MG Tab.CR PO SCH (08:29)
[2023-07-20] MEDS: atorvaSTATin 20 MG Tab PO SCH (08:29)
[2023-07-20] MEDS: Metoprolol Tartrate 25 MG Tab PO SCH ×2 (08:29→19:41)
[2023-07-20] MEDS: Cholecalciferol (Vitamin D3) 5,000 UNIT Tab PO SCH (08:29)
[2023-07-20] MEDS: traMADol 50 MG Tab PO SCH ×2 (08:29→19:42)
[2023-07-20] MEDS: amLODIPine 10 MG Tab PO SCH (08:29)
[2023-07-20] MEDS: Furosemide 40 MG Tab PO SCH ×2 (08:29→16:32)
[2023-07-20] MEDS: Diltiazem IR 30 MG Tab PO SCH ×4 (08:31→19:42)
[2023-07-20] MEDS: predniSONE 5 MG Tab PO SCH ×2 (08:35→16:45)
[2023-07-20] MEDS: VANCOmycin 1 GM/200 ML 1 GM in Premix Bag 1 BAG IV SCH (11:52)
[2023-07-20] MEDS: Tamsulosin 0.4 MG Cap.ER PO SCH (19:41)
[2023-07-21] MEDS: Lisinopril 20 MG Tab PO SCH (07:43)
[2023-07-21] MEDS: Pantoprazole 40 MG Tab.CR PO SCH (07:43)
[2023-07-21] MEDS: metFORMIN 500 MG Tab PO SCH ×2 (07:43→17:24)
[2023-07-21] MEDS: Cholecalciferol (Vitamin D3) 5,000 UNIT Tab PO SCH (07:43)
[2023-07-21] MEDS: traMADol 50 MG Tab PO SCH ×2 (07:44→19:29)
[2023-07-21] MEDS: Furosemide 40 MG Tab PO SCH ×2 (07:44→15:53)
[2023-07-21] MEDS: atorvaSTATin 20 MG Tab PO SCH (07:44)
[2023-07-21] MEDS: Metoprolol Tartrate 25 MG Tab PO SCH ×2 (07:44→19:27)
[2023-07-21] MEDS: amLODIPine 10 MG Tab PO SCH (07:44)
[2023-07-21] MEDS: Diltiazem IR 30 MG Tab PO SCH ×4 (07:44→19:27)
[2023-07-21] MEDS: Insulin Lispro 100 Units/ML 3 ML Vial SUBCUT SCH ×4 (07:45→21:00)
[2023-07-21] MEDS: predniSONE 5 MG Tab PO SCH ×2 (07:48→15:53)
[2023-07-21] MEDS: VANCOmycin 1 GM/200 ML 1 GM in Premix Bag 1 BAG IV SCH (11:58)
[2023-07-21] MEDS: Tamsulosin 0.4 MG Cap.ER PO SCH (19:27)
[2023-07-22] MEDS: Furosemide 40 MG Tab PO SCH ×2 (07:48→16:23)
[2023-07-22] MEDS: metFORMIN 500 MG Tab PO SCH ×2 (07:48→18:26)
[2023-07-22] MEDS: Diltiazem IR 30 MG Tab PO SCH ×4 (07:48→19:25)
[2023-07-22] MEDS: Cholecalciferol (Vitamin D3) 5,000 UNIT Tab PO SCH (07:48)
[2023-07-22] MEDS: predniSONE 5 MG Tab PO SCH ×2 (07:49→16:23)
[2023-07-22] MEDS: amLODIPine 10 MG Tab PO SCH (07:49)
[2023-07-22] MEDS: Pantoprazole 40 MG Tab.CR PO SCH (07:49)
[2023-07-22] MEDS: atorvaSTATin 20 MG Tab PO SCH (07:49)
[2023-07-22] MEDS: traMADol 50 MG Tab PO SCH ×2 (07:49→19:26)
[2023-07-22] MEDS: Metoprolol Tartrate 25 MG Tab PO SCH ×2 (07:50→19:25)
[2023-07-22] MEDS: Lisinopril 20 MG Tab PO SCH (07:50)
[2023-07-22] MEDS: Insulin Lispro 100 Units/ML 3 ML Vial SUBCUT SCH ×4 (07:56→21:21)
[2023-07-22] MEDS: VANCOmycin 1 GM/200 ML 1 GM in Premix Bag 1 BAG IV SCH (11:54)
[2023-07-22] MEDS: Tamsulosin 0.4 MG Cap.ER PO SCH (19:25)
[2023-07-23] MEDS: Furosemide 40 MG Tab PO SCH ×2 (07:58→15:23)
[2023-07-23] MEDS: Diltiazem IR 30 MG Tab PO SCH ×4 (07:59→19:51)
[2023-07-23] MEDS: Lisinopril 20 MG Tab PO SCH (07:59)
[2023-07-23] MEDS: Metoprolol Tartrate 25 MG Tab PO SCH ×2 (07:59→19:52)
[2023-07-23] MEDS: Cholecalciferol (Vitamin D3) 5,000 UNIT Tab PO SCH (08:00)
[2023-07-23] MEDS: Pantoprazole 40 MG Tab.CR PO SCH (08:00)
[2023-07-23] MEDS: atorvaSTATin 20 MG Tab PO SCH (08:00)
[2023-07-23] MEDS: metFORMIN 500 MG Tab PO SCH ×2 (08:00→18:06)
[2023-07-23] MEDS: amLODIPine 10 MG Tab PO SCH (08:00)
[2023-07-23] MEDS: traMADol 50 MG Tab PO SCH ×2 (08:00→19:53)
[2023-07-23] MEDS: predniSONE 5 MG Tab PO SCH ×2 (08:00→15:23)
[2023-07-23] MEDS: Insulin Lispro 100 Units/ML 3 ML Vial SUBCUT SCH ×4 (08:01→21:11)
[2023-07-23] MEDS: VANCOmycin 1 GM/200 ML 1 GM in Premix Bag 1 BAG IV SCH (11:44)
[2023-07-23] MEDS: Tamsulosin 0.4 MG Cap.ER PO SCH (19:52)
[2023-07-24] MEDS ORDERED: Furosemide 40 MG Tab ONE (07:41)
[2023-07-24] MEDS: Metoprolol Tartrate 25 MG Tab PO SCH ×2 (07:51→19:51)
[2023-07-24] MEDS: Lisinopril 20 MG Tab PO SCH (07:52)
[2023-07-24] MEDS: amLODIPine 10 MG Tab PO SCH (07:52)
[2023-07-24] MEDS: Pantoprazole 40 MG Tab.CR PO SCH (07:53)
[2023-07-24] MEDS: metFORMIN 500 MG Tab PO SCH ×2 (07:53→17:42)
[2023-07-24] MEDS: Furosemide 40 MG Tab PO SCH ×2 (07:53→15:58)
[2023-07-24] MEDS: Diltiazem IR 30 MG Tab PO SCH ×4 (07:53→19:50)
[2023-07-24] MEDS: Cholecalciferol (Vitamin D3) 5,000 UNIT Tab PO SCH (07:54)
[2023-07-24] MEDS: predniSONE 5 MG Tab PO SCH ×2 (07:54→15:57)
[2023-07-24] MEDS: traMADol 50 MG Tab PO SCH ×2 (07:54→19:50)
[2023-07-24] MEDS: atorvaSTATin 20 MG Tab PO SCH (07:54)
[2023-07-24 07:56] LABS: CALCIUM 8.6 mg/dL (8.4-10.1); CREATININE 1.4 mg/dL (0.7-1.3); EST CRCL DRUG DOSING (CG) 39.83 mL/min; POTASSIUM,K 3.5 mEq/L (3.5-5.0)
[2023-07-24] MEDS: Insulin Lispro 100 Units/ML 3 ML Vial SUBCUT SCH ×4 (07:58→21:49)
[2023-07-24] MEDS: VANCOmycin 1 GM/200 ML 1 GM in Premix Bag 1 BAG IV SCH (11:42)
[2023-07-24] MEDS: Tamsulosin 0.4 MG Cap.ER PO SCH (19:51)
[2023-07-25] MEDS: Metoprolol Tartrate 25 MG Tab PO SCH ×2 (08:00→21:19)
[2023-07-25] MEDS: Lisinopril 20 MG Tab PO SCH (08:00)
[2023-07-25] MEDS: Insulin Lispro 100 Units/ML 3 ML Vial SUBCUT SCH ×4 (08:00→21:51)
[2023-07-25] MEDS: Diltiazem IR 30 MG Tab PO SCH ×4 (08:00→21:20)
[2023-07-25] MEDS: amLODIPine 10 MG Tab PO SCH (08:00)
[2023-07-25] MEDS: atorvaSTATin 20 MG Tab PO SCH (08:01)
[2023-07-25] MEDS: Cholecalciferol (Vitamin D3) 5,000 UNIT Tab PO SCH (08:01)
[2023-07-25] MEDS: predniSONE 5 MG Tab PO SCH ×2 (08:01→16:28)
[2023-07-25] MEDS: metFORMIN 500 MG Tab PO SCH ×2 (08:01→17:35)
[2023-07-25] MEDS: Furosemide 40 MG Tab PO SCH ×2 (08:02→16:28)
[2023-07-25] MEDS: Pantoprazole 40 MG Tab.CR PO SCH (08:02)
[2023-07-25] MEDS: traMADol 50 MG Tab PO SCH ×2 (08:06→21:20)
[2023-07-25] MEDS: VANCOmycin 1 GM/200 ML 1 GM in Premix Bag 1 BAG IV SCH (11:53)
[2023-07-25] MEDS: Tamsulosin 0.4 MG Cap.ER PO SCH (21:20)
[2023-07-26] MEDS: Insulin Lispro 100 Units/ML 3 ML Vial SUBCUT SCH ×4 (08:21→20:52)
[2023-07-26] MEDS: traMADol 50 MG Tab PO SCH ×2 (08:27→19:33)
[2023-07-26] MEDS: metFORMIN 500 MG Tab PO SCH ×2 (08:27→17:17)
[2023-07-26] MEDS: Cholecalciferol (Vitamin D3) 5,000 UNIT Tab PO SCH (08:27)
[2023-07-26] MEDS: Diltiazem IR 30 MG Tab PO SCH ×4 (08:27→19:32)
[2023-07-26] MEDS: atorvaSTATin 20 MG Tab PO SCH (08:27)
[2023-07-26] MEDS: amLODIPine 10 MG Tab PO SCH (08:28)
[2023-07-26] MEDS: Pantoprazole 40 MG Tab.CR PO SCH (08:28)
[2023-07-26] MEDS: Furosemide 40 MG Tab PO SCH ×2 (08:28→15:52)
[2023-07-26] MEDS: Metoprolol Tartrate 25 MG Tab PO SCH ×2 (08:28→19:32)
[2023-07-26] MEDS: predniSONE 5 MG Tab PO SCH ×2 (08:28→15:52)
[2023-07-26] MEDS: Lisinopril 20 MG Tab PO SCH (08:28)
[2023-07-26] MEDS: VANCOmycin 1 GM/200 ML 1 GM in Premix Bag 1 BAG IV SCH (12:02)
[2023-07-26] MEDS: Tamsulosin 0.4 MG Cap.ER PO SCH (19:32)
[2023-07-27] MEDS: Diltiazem IR 30 MG Tab PO SCH ×4 (08:09→19:46)
[2023-07-27] MEDS: metFORMIN 500 MG Tab PO SCH ×2 (08:09→17:24)
[2023-07-27] MEDS: traMADol 50 MG Tab PO SCH ×2 (08:11→19:46)
[2023-07-27] MEDS: atorvaSTATin 20 MG Tab PO SCH (08:12)
[2023-07-27] MEDS: Furosemide 40 MG Tab PO SCH ×2 (08:12→16:06)
[2023-07-27] MEDS: predniSONE 5 MG Tab PO SCH ×2 (08:12→16:06)
[2023-07-27] MEDS: Cholecalciferol (Vitamin D3) 5,000 UNIT Tab PO SCH (08:12)
[2023-07-27] MEDS: Pantoprazole 40 MG Tab.CR PO SCH (08:12)
[2023-07-27] MEDS: Metoprolol Tartrate 25 MG Tab PO SCH ×2 (08:13→19:46)
[2023-07-27] MEDS: amLODIPine 10 MG Tab PO SCH (08:19)
[2023-07-27] MEDS: Lisinopril 20 MG Tab PO SCH (08:19)
[2023-07-27] MEDS: Insulin Lispro 100 Units/ML 3 ML Vial SUBCUT SCH ×4 (08:27→22:10)
[2023-07-27 08:54] LABS: CALCIUM 8.6 mg/dL (8.4-10.1); CREATININE 1.4 mg/dL (0.7-1.3); EST CRCL DRUG DOSING (CG) 39.83 mL/min; POTASSIUM,K 3.6 mEq/L (3.5-5.0)
[2023-07-27] MEDS: VANCOmycin 1 GM/200 ML 1 GM in Premix Bag 1 BAG IV SCH (12:12)
[2023-07-27] MEDS: Tamsulosin 0.4 MG Cap.ER PO SCH (19:46)
[2023-07-28] MEDS: predniSONE 5 MG Tab PO SCH ×2 (08:19→16:48)
[2023-07-28] MEDS: amLODIPine 10 MG Tab PO SCH (08:19)
[2023-07-28] MEDS: atorvaSTATin 20 MG Tab PO SCH (08:19)
[2023-07-28] MEDS: Cholecalciferol (Vitamin D3) 5,000 UNIT Tab PO SCH (08:19)
[2023-07-28] MEDS: traMADol 50 MG Tab PO SCH ×2 (08:19→19:22)
[2023-07-28] MEDS: Diltiazem IR 30 MG Tab PO SCH ×4 (08:19→19:22)
[2023-07-28] MEDS: Lisinopril 20 MG Tab PO SCH (08:20)
[2023-07-28] MEDS: Metoprolol Tartrate 25 MG Tab PO SCH ×2 (08:20→19:22)
[2023-07-28] MEDS: Furosemide 40 MG Tab PO SCH ×2 (08:20→16:48)
[2023-07-28] MEDS: Pantoprazole 40 MG Tab.CR PO SCH (08:21)
[2023-07-28] MEDS: metFORMIN 500 MG Tab PO SCH ×2 (08:21→17:40)
[2023-07-28] MEDS: Insulin Lispro 100 Units/ML 3 ML Vial SUBCUT SCH ×4 (08:21→20:27)
[2023-07-28] MEDS: VANCOmycin 1 GM/200 ML 1 GM in Premix Bag 1 BAG IV SCH (11:47)
[2023-07-28] MEDS: Tamsulosin 0.4 MG Cap.ER PO SCH (19:22)
[2023-07-29] MEDS: Furosemide 40 MG Tab PO SCH ×2 (08:06→16:17)
[2023-07-29] MEDS: metFORMIN 500 MG Tab PO SCH ×2 (08:06→16:30)
[2023-07-29] MEDS: amLODIPine 10 MG Tab PO SCH (08:06)
[2023-07-29] MEDS: Metoprolol Tartrate 25 MG Tab PO SCH ×2 (08:06→20:05)
[2023-07-29] MEDS: Cholecalciferol (Vitamin D3) 5,000 UNIT Tab PO SCH (08:06)
[2023-07-29] MEDS: predniSONE 5 MG Tab PO SCH ×2 (08:07→16:17)
[2023-07-29] MEDS: atorvaSTATin 20 MG Tab PO SCH (08:07)
[2023-07-29] MEDS: Lisinopril 20 MG Tab PO SCH (08:07)
[2023-07-29] MEDS: traMADol 50 MG Tab PO SCH ×2 (08:07→20:04)
[2023-07-29] MEDS: Diltiazem IR 30 MG Tab PO SCH ×4 (08:07→20:06)
[2023-07-29] MEDS: Pantoprazole 40 MG Tab.CR PO SCH (08:07)
[2023-07-29] MEDS: Insulin Lispro 100 Units/ML 3 ML Vial SUBCUT SCH ×4 (08:27→21:08)
[2023-07-29] MEDS: VANCOmycin 1 GM/200 ML 1 GM in Premix Bag 1 BAG IV SCH (12:06)
[2023-07-29] MEDS: Tamsulosin 0.4 MG Cap.ER PO SCH (20:05)
[2023-07-30] MEDS: atorvaSTATin 20 MG Tab PO SCH (07:33)
[2023-07-30] MEDS: traMADol 50 MG Tab PO SCH ×2 (07:33→19:32)
[2023-07-30] MEDS: Cholecalciferol (Vitamin D3) 5,000 UNIT Tab PO SCH (07:33)
[2023-07-30] MEDS: predniSONE 5 MG Tab PO SCH ×2 (07:33→15:04)
[2023-07-30] MEDS: Furosemide 40 MG Tab PO SCH ×2 (07:33→15:04)
[2023-07-30] MEDS: Pantoprazole 40 MG Tab.CR PO SCH (07:34)
[2023-07-30] MEDS: Diltiazem IR 30 MG Tab PO SCH ×4 (07:34→19:32)
[2023-07-30] MEDS: amLODIPine 10 MG Tab PO SCH (07:34)
[2023-07-30] MEDS: Lisinopril 20 MG Tab PO SCH (07:34)
[2023-07-30] MEDS: metFORMIN 500 MG Tab PO SCH ×2 (07:34→17:13)
[2023-07-30] MEDS: Metoprolol Tartrate 25 MG Tab PO SCH ×2 (07:35→19:31)
[2023-07-30] MEDS: Insulin Lispro 100 Units/ML 3 ML Vial SUBCUT SCH ×4 (08:24→21:03)
[2023-07-30] MEDS: VANCOmycin 1 GM/200 ML 1 GM in Premix Bag 1 BAG IV SCH (11:49)
[2023-07-30] MEDS: Tamsulosin 0.4 MG Cap.ER PO SCH (19:31)
[2023-07-31] MEDS: Diltiazem IR 30 MG Tab PO SCH ×4 (07:41→19:26)
[2023-07-31] MEDS: Cholecalciferol (Vitamin D3) 5,000 UNIT Tab PO SCH (07:41)
[2023-07-31] MEDS: amLODIPine 10 MG Tab PO SCH (07:41)
[2023-07-31] MEDS: Lisinopril 20 MG Tab PO SCH (07:41)
[2023-07-31] MEDS: Pantoprazole 40 MG Tab.CR PO SCH (07:41)
[2023-07-31] MEDS: metFORMIN 500 MG Tab PO SCH ×2 (07:42→16:30)
[2023-07-31] MEDS: Metoprolol Tartrate 25 MG Tab PO SCH ×2 (07:42→19:27)
[2023-07-31] MEDS: Furosemide 40 MG Tab PO SCH ×2 (07:42→16:30)
[2023-07-31] MEDS: atorvaSTATin 20 MG Tab PO SCH (07:43)
[2023-07-31] MEDS: predniSONE 5 MG Tab PO SCH ×2 (07:43→16:30)
[2023-07-31] MEDS: traMADol 50 MG Tab PO SCH ×2 (07:43→19:27)
[2023-07-31] MEDS: Insulin Lispro 100 Units/ML 3 ML Vial SUBCUT SCH ×4 (07:46→20:38)
[2023-07-31] MEDS: VANCOmycin 1 GM/200 ML 1 GM in Premix Bag 1 BAG IV SCH (11:46)
[2023-07-31] MEDS: Tamsulosin 0.4 MG Cap.ER PO SCH (19:27)
[2023-08-01] MEDS: traMADol 50 MG Tab PO SCH ×2 (07:31→19:25)
[2023-08-01] MEDS: Furosemide 40 MG Tab PO SCH ×2 (07:31→15:22)
[2023-08-01] MEDS: Cholecalciferol (Vitamin D3) 5,000 UNIT Tab PO SCH (07:31)
[2023-08-01] MEDS: amLODIPine 10 MG Tab PO SCH (07:31)
[2023-08-01] MEDS: Pantoprazole 40 MG Tab.CR PO SCH (07:31)
[2023-08-01] MEDS: Lisinopril 20 MG Tab PO SCH (07:31)
[2023-08-01] MEDS: predniSONE 5 MG Tab PO SCH ×2 (07:32→15:22)
[2023-08-01] MEDS: Diltiazem IR 30 MG Tab PO SCH ×4 (07:32→19:24)
[2023-08-01] MEDS: Metoprolol Tartrate 25 MG Tab PO SCH ×2 (07:32→19:24)
[2023-08-01] MEDS: Insulin Lispro 100 Units/ML 3 ML Vial SUBCUT SCH ×4 (07:33→20:46)
[2023-08-01] MEDS: atorvaSTATin 20 MG Tab PO SCH (07:33)
[2023-08-01] MEDS: metFORMIN 500 MG Tab PO SCH ×2 (07:35→17:10)
[2023-08-01] MEDS: VANCOmycin 1 GM/200 ML 1 GM in Premix Bag 1 BAG IV SCH (11:35)
[2023-08-01] MEDS: Tamsulosin 0.4 MG Cap.ER PO SCH (19:24)
[2023-08-02] MEDS: Cholecalciferol (Vitamin D3) 5,000 UNIT Tab PO SCH (07:39)
[2023-08-02] MEDS: traMADol 50 MG Tab PO SCH ×2 (07:39→19:29)
[2023-08-02] MEDS: Pantoprazole 40 MG Tab.CR PO SCH (07:39)
[2023-08-02] MEDS: metFORMIN 500 MG Tab PO SCH ×2 (07:39→17:17)
[2023-08-02] MEDS: atorvaSTATin 20 MG Tab PO SCH (07:40)
[2023-08-02] MEDS: Metoprolol Tartrate 25 MG Tab PO SCH ×2 (07:40→19:30)
[2023-08-02] MEDS: amLODIPine 10 MG Tab PO SCH (07:40)
[2023-08-02] MEDS: predniSONE 5 MG Tab PO SCH ×2 (07:40→15:43)
[2023-08-02] MEDS: Furosemide 40 MG Tab PO SCH ×2 (07:40→15:42)
[2023-08-02] MEDS: Lisinopril 20 MG Tab PO SCH (07:40)
[2023-08-02] MEDS: Diltiazem IR 30 MG Tab PO SCH ×4 (07:40→19:29)
[2023-08-02] MEDS: Insulin Lispro 100 Units/ML 3 ML Vial SUBCUT SCH ×4 (07:43→20:48)
[2023-08-02] MEDS: VANCOmycin 1 GM/200 ML 1 GM in Premix Bag 1 BAG IV SCH (11:04)
[2023-08-02] MEDS: Tamsulosin 0.4 MG Cap.ER PO SCH (19:29)
[2023-08-03 07:46] LABS: CALCIUM 8.9 mg/dL (8.4-10.1); CREATININE 1.5 mg/dL (0.7-1.3); EST CRCL DRUG DOSING (CG) 37.18 mL/min; POTASSIUM,K 3.6 mEq/L (3.5-5.0)
[2023-08-03] MEDS: predniSONE 5 MG Tab PO SCH ×2 (08:21→16:00)
[2023-08-03] MEDS: Metoprolol Tartrate 25 MG Tab PO SCH ×2 (08:21→19:18)
[2023-08-03] MEDS: Diltiazem IR 30 MG Tab PO SCH ×4 (08:22→19:18)
[2023-08-03] MEDS: Cholecalciferol (Vitamin D3) 5,000 UNIT Tab PO SCH (08:22)
[2023-08-03] MEDS: atorvaSTATin 20 MG Tab PO SCH (08:23)
[2023-08-03] MEDS: Lisinopril 20 MG Tab PO SCH (08:23)
[2023-08-03] MEDS: traMADol 50 MG Tab PO SCH ×2 (08:23→19:18)
[2023-08-03] MEDS: Furosemide 40 MG Tab PO SCH ×2 (08:23→15:59)
[2023-08-03] MEDS: Insulin Lispro 100 Units/ML 3 ML Vial SUBCUT SCH ×4 (08:24→20:37)
[2023-08-03] MEDS: metFORMIN 500 MG Tab PO SCH ×2 (08:26→17:30)
[2023-08-03] MEDS: Pantoprazole 40 MG Tab.CR PO SCH (08:30)
[2023-08-03] MEDS: amLODIPine 10 MG Tab PO SCH (08:30)
[2023-08-03] MEDS: VANCOmycin 1 GM/200 ML 1 GM in Premix Bag 1 BAG IV SCH (12:07)
[2023-08-03] MEDS: Tamsulosin 0.4 MG Cap.ER PO SCH (19:18)
[2023-08-04] MEDS: amLODIPine 10 MG Tab PO SCH (07:30)
[2023-08-04] MEDS: traMADol 50 MG Tab PO SCH ×2 (07:30→19:56)
[2023-08-04] MEDS: Metoprolol Tartrate 25 MG Tab PO SCH ×2 (07:30→19:54)
[2023-08-04] MEDS: Lisinopril 20 MG Tab PO SCH (07:31)
[2023-08-04] MEDS: Furosemide 40 MG Tab PO SCH ×2 (07:31→16:01)
[2023-08-04] MEDS: metFORMIN 500 MG Tab PO SCH ×2 (07:31→17:33)
[2023-08-04] MEDS: predniSONE 5 MG Tab PO SCH ×2 (07:31→16:01)
[2023-08-04] MEDS: Pantoprazole 40 MG Tab.CR PO SCH (07:32)
[2023-08-04] MEDS: atorvaSTATin 20 MG Tab PO SCH (07:32)
[2023-08-04] MEDS: Cholecalciferol (Vitamin D3) 5,000 UNIT Tab PO SCH (07:32)
[2023-08-04] MEDS: Diltiazem IR 30 MG Tab PO SCH ×4 (07:32→19:54)
[2023-08-04] MEDS: Insulin Lispro 100 Units/ML 3 ML Vial SUBCUT SCH ×4 (07:33→20:08)
[2023-08-04] MEDS: VANCOmycin 1 GM/200 ML 1 GM in Premix Bag 1 BAG IV SCH (11:34)
[2023-08-04] MEDS: Tamsulosin 0.4 MG Cap.ER PO SCH (19:54)
[2023-08-05] MEDS: atorvaSTATin 20 MG Tab PO SCH (07:51)
[2023-08-05] MEDS: Pantoprazole 40 MG Tab.CR PO SCH (07:51)
[2023-08-05] MEDS: Furosemide 40 MG Tab PO SCH ×2 (07:51→16:59)
[2023-08-05] MEDS: traMADol 50 MG Tab PO SCH ×2 (07:51→19:34)
[2023-08-05] MEDS: Metoprolol Tartrate 25 MG Tab PO SCH ×2 (07:51→19:34)
[2023-08-05] MEDS: Cholecalciferol (Vitamin D3) 5,000 UNIT Tab PO SCH (07:51)
[2023-08-05] MEDS: metFORMIN 500 MG Tab PO SCH ×2 (07:52→17:37)
[2023-08-05] MEDS: Diltiazem IR 30 MG Tab PO SCH ×4 (07:52→19:33)
[2023-08-05] MEDS: Lisinopril 20 MG Tab PO SCH (07:52)
[2023-08-05] MEDS: amLODIPine 10 MG Tab PO SCH (07:52)
[2023-08-05] MEDS: predniSONE 5 MG Tab PO SCH ×2 (07:52→16:58)
[2023-08-05] MEDS: Insulin Lispro 100 Units/ML 3 ML Vial SUBCUT SCH ×4 (07:56→21:30)
[2023-08-05] MEDS: VANCOmycin 1 GM/200 ML 1 GM in Premix Bag 1 BAG IV SCH (11:29)
[2023-08-05] MEDS: Tamsulosin 0.4 MG Cap.ER PO SCH (19:33)
[2023-08-06] MEDS: traMADol 50 MG Tab PO SCH ×2 (08:52→19:40)
[2023-08-06] MEDS: Furosemide 40 MG Tab PO SCH ×2 (08:52→16:17)
[2023-08-06] MEDS: amLODIPine 10 MG Tab PO SCH (08:52)
[2023-08-06] MEDS: Pantoprazole 40 MG Tab.CR PO SCH (08:53)
[2023-08-06] MEDS: predniSONE 5 MG Tab PO SCH ×2 (08:53→16:17)
[2023-08-06] MEDS: Cholecalciferol (Vitamin D3) 5,000 UNIT Tab PO SCH (08:53)
[2023-08-06] MEDS: Lisinopril 20 MG Tab PO SCH (08:53)
[2023-08-06] MEDS: atorvaSTATin 20 MG Tab PO SCH (08:53)
[2023-08-06] MEDS: Metoprolol Tartrate 25 MG Tab PO SCH ×2 (08:54→19:41)
[2023-08-06] MEDS: metFORMIN 500 MG Tab PO SCH ×2 (08:54→17:20)
[2023-08-06] MEDS: Diltiazem IR 30 MG Tab PO SCH ×4 (08:55→19:41)
[2023-08-06] MEDS: Insulin Lispro 100 Units/ML 3 ML Vial SUBCUT SCH ×4 (09:00→20:20)
[2023-08-06] MEDS: VANCOmycin 1 GM/200 ML 1 GM in Premix Bag 1 BAG IV SCH (11:47)
[2023-08-06] MEDS: Tamsulosin 0.4 MG Cap.ER PO SCH (19:41)
[2023-08-07] MEDS: Insulin Lispro 100 Units/ML 3 ML Vial SUBCUT SCH ×4 (08:10→20:27)
[2023-08-07] MEDS: amLODIPine 10 MG Tab PO SCH (08:11)
[2023-08-07] MEDS: atorvaSTATin 20 MG Tab PO SCH (08:11)
[2023-08-07] MEDS: Metoprolol Tartrate 25 MG Tab PO SCH ×2 (08:12→19:40)
[2023-08-07] MEDS: Furosemide 40 MG Tab PO SCH ×2 (08:13→16:01)
[2023-08-07] MEDS: traMADol 50 MG Tab PO SCH ×2 (08:13→19:40)
[2023-08-07] MEDS: Cholecalciferol (Vitamin D3) 5,000 UNIT Tab PO SCH (08:13)
[2023-08-07] MEDS: Diltiazem IR 30 MG Tab PO SCH ×4 (08:13→19:40)
[2023-08-07] MEDS: Pantoprazole 40 MG Tab.CR PO SCH (08:13)
[2023-08-07] MEDS: metFORMIN 500 MG Tab PO SCH ×2 (08:13→17:28)
[2023-08-07] MEDS: Lisinopril 20 MG Tab PO SCH (08:14)
[2023-08-07] MEDS: predniSONE 5 MG Tab PO SCH ×2 (08:14→16:01)
[2023-08-07] MEDS: VANCOmycin 1 GM/200 ML 1 GM in Premix Bag 1 BAG IV SCH (11:55)
[2023-08-07] MEDS: Tamsulosin 0.4 MG Cap.ER PO SCH (19:40)
[2023-08-08] MEDS: Diltiazem IR 30 MG Tab PO SCH ×4 (07:26→19:42)
[2023-08-08] MEDS: Metoprolol Tartrate 25 MG Tab PO SCH ×2 (07:27→19:41)
[2023-08-08] MEDS: Furosemide 40 MG Tab PO SCH ×2 (07:28→15:55)
[2023-08-08] MEDS: Lisinopril 20 MG Tab PO SCH (07:28)
[2023-08-08] MEDS: Cholecalciferol (Vitamin D3) 5,000 UNIT Tab PO SCH (07:28)
[2023-08-08] MEDS: Pantoprazole 40 MG Tab.CR PO SCH (07:28)
[2023-08-08] MEDS: metFORMIN 500 MG Tab PO SCH ×2 (07:29→17:35)
[2023-08-08] MEDS: traMADol 50 MG Tab PO SCH ×2 (07:29→19:41)
[2023-08-08] MEDS: atorvaSTATin 20 MG Tab PO SCH (07:29)
[2023-08-08] MEDS: predniSONE 5 MG Tab PO SCH ×2 (07:29→15:55)
[2023-08-08] MEDS: amLODIPine 10 MG Tab PO SCH (07:32)
[2023-08-08] MEDS: Insulin Lispro 100 Units/ML 3 ML Vial SUBCUT SCH ×4 (07:33→21:51)
[2023-08-08 08:03] LABS: CREATININE 1.4 mg/dL (0.7-1.3); EST CRCL DRUG DOSING (CG) 39.83 mL/min; POTASSIUM,K 4.5 mEq/L (3.5-5.0)
[2023-08-08] MEDS: VANCOmycin 1 GM/200 ML 1 GM in Premix Bag 1 BAG IV SCH (11:33)
[2023-08-08] MEDS: Tamsulosin 0.4 MG Cap.ER PO SCH (19:42)
[2023-08-09] MEDS: Diltiazem IR 30 MG Tab PO SCH ×4 (07:29→19:45)
[2023-08-09] MEDS: Cholecalciferol (Vitamin D3) 5,000 UNIT Tab PO SCH (07:30)
[2023-08-09] MEDS: atorvaSTATin 20 MG Tab PO SCH (07:30)
[2023-08-09] MEDS: metFORMIN 500 MG Tab PO SCH ×2 (07:30→17:36)
[2023-08-09] MEDS: predniSONE 5 MG Tab PO SCH ×2 (07:30→15:58)
[2023-08-09] MEDS: Pantoprazole 40 MG Tab.CR PO SCH (07:30)
[2023-08-09] MEDS: traMADol 50 MG Tab PO SCH ×2 (07:30→19:45)
[2023-08-09] MEDS: Furosemide 40 MG Tab PO SCH ×2 (07:31→15:58)
[2023-08-09] MEDS: Metoprolol Tartrate 25 MG Tab PO SCH ×2 (07:31→19:46)
[2023-08-09] MEDS: Insulin Lispro 100 Units/ML 3 ML Vial SUBCUT SCH ×4 (07:32→21:00)
[2023-08-09] MEDS: Lisinopril 20 MG Tab PO SCH (07:33)
[2023-08-09] MEDS: amLODIPine 10 MG Tab PO SCH (07:33)
[2023-08-09] MEDS: VANCOmycin 1 GM/200 ML 1 GM in Premix Bag 1 BAG IV SCH (11:23)
[2023-08-09] MEDS: Tamsulosin 0.4 MG Cap.ER PO SCH (19:46)
[2023-08-10] MEDS: Diltiazem IR 30 MG Tab PO SCH ×4 (07:16→19:44)
[2023-08-10] MEDS: metFORMIN 500 MG Tab PO SCH ×2 (07:17→17:45)
[2023-08-10] MEDS: Furosemide 40 MG Tab PO SCH ×2 (07:18→15:31)
[2023-08-10] MEDS: atorvaSTATin 20 MG Tab PO SCH (07:19)
[2023-08-10] MEDS: Metoprolol Tartrate 25 MG Tab PO SCH ×2 (07:19→19:43)
[2023-08-10] MEDS: amLODIPine 10 MG Tab PO SCH (07:21)
[2023-08-10] MEDS: predniSONE 5 MG Tab PO SCH ×2 (07:21→15:32)
[2023-08-10] MEDS: Lisinopril 20 MG Tab PO SCH (07:22)
[2023-08-10] MEDS: Pantoprazole 40 MG Tab.CR PO SCH (07:23)
[2023-08-10] MEDS: traMADol 50 MG Tab PO SCH ×2 (07:23→19:43)
[2023-08-10] MEDS: Cholecalciferol (Vitamin D3) 5,000 UNIT Tab PO SCH (07:24)
[2023-08-10] MEDS: Insulin Lispro 100 Units/ML 3 ML Vial SUBCUT SCH ×4 (07:31→20:53)
[2023-08-10 07:53] LABS: CALCIUM 9.2 mg/dL (8.4-10.1); CREATININE 1.3 mg/dL (0.7-1.3); EST CRCL DRUG DOSING (CG) 42.9 mL/min; POTASSIUM,K 3.8 mEq/L (3.5-5.0)
[2023-08-10] MEDS: VANCOmycin 1 GM/200 ML 1 GM in Premix Bag 1 BAG IV SCH (11:09)
[2023-08-10] MEDS: Tamsulosin 0.4 MG Cap.ER PO SCH (19:43)
[2023-08-11] MEDS: Diltiazem IR 30 MG Tab PO SCH ×4 (07:05→19:27)
[2023-08-11] MEDS: Metoprolol Tartrate 25 MG Tab PO SCH ×2 (07:11→19:27)
[2023-08-11] MEDS: atorvaSTATin 20 MG Tab PO SCH (07:11)
[2023-08-11] MEDS: Furosemide 40 MG Tab PO SCH ×2 (07:11→15:28)
[2023-08-11] MEDS: predniSONE 5 MG Tab PO SCH ×2 (07:13→15:28)
[2023-08-11] MEDS: amLODIPine 10 MG Tab PO SCH (07:13)
[2023-08-11] MEDS: Lisinopril 20 MG Tab PO SCH (07:13)
[2023-08-11] MEDS: Pantoprazole 40 MG Tab.CR PO SCH (07:14)
[2023-08-11] MEDS: traMADol 50 MG Tab PO SCH ×2 (07:14→19:27)
[2023-08-11] MEDS: Cholecalciferol (Vitamin D3) 5,000 UNIT Tab PO SCH (07:14)
[2023-08-11] MEDS: metFORMIN 500 MG Tab PO SCH ×2 (07:18→17:09)
[2023-08-11] MEDS: Insulin Lispro 100 Units/ML 3 ML Vial SUBCUT SCH ×4 (07:18→20:34)
[2023-08-11] MEDS: VANCOmycin 1 GM/200 ML 1 GM in Premix Bag 1 BAG IV SCH (11:01)
[2023-08-11] MEDS: Tamsulosin 0.4 MG Cap.ER PO SCH (19:27)
[2023-08-12] MEDS: atorvaSTATin 20 MG Tab PO SCH (07:51)
[2023-08-12] MEDS: metFORMIN 500 MG Tab PO SCH (07:51)
[2023-08-12] MEDS: Pantoprazole 40 MG Tab.CR PO SCH (07:51)
[2023-08-12] MEDS: predniSONE 5 MG Tab PO SCH (07:52)
[2023-08-12] MEDS: Furosemide 40 MG Tab PO SCH (07:52)
[2023-08-12] MEDS: amLODIPine 10 MG Tab PO SCH (07:52)
[2023-08-12] MEDS: Lisinopril 20 MG Tab PO SCH (07:52)
[2023-08-12] MEDS: Cholecalciferol (Vitamin D3) 5,000 UNIT Tab PO SCH (07:53)
[2023-08-12] MEDS: Diltiazem IR 30 MG Tab PO SCH ×2 (07:53→11:39)
[2023-08-12] MEDS: Metoprolol Tartrate 25 MG Tab PO SCH (07:53)
[2023-08-12] MEDS: traMADol 50 MG Tab PO SCH (07:53)
[2023-08-12] MEDS: Insulin Lispro 100 Units/ML 3 ML Vial SUBCUT SCH ×2 (07:55→11:47)
[2023-08-12] MEDS ORDERED: VANCOmycin 1 GM/200 ML 1 GM in Premix Bag 1 BAG IV SCH (10:30)
== END 2023-08-12 12:45 | DRG 872 ==
LOC: UNDOADMIN 12:20 → CC.MS 12:20
PROVIDERS: ADMIT Nurse Practitioner; ATTEND Nurse Practitioner
DX: R78.81 Bacteremia (principal); I48.11 Longstanding persistent atrial fibrillation; N30.01 Acute cystitis with hematuria; L89.159 Pressure ulcer of sacral region, unspecified stage; B95.62 Methicillin resistant Staphylococcus aureus infection as the cause of diseases classified elsewhere; Z66 Do not resuscitate; Z20.822 Contact with and (suspected) exposure to COVID-19; Z79.899 Other long term (current) drug therapy
CPT/HCPCS: 36415; 80048; 80202; 82947; 99307; 99315; A9270-GY; J0712; J1642; J1815-GY; J3370; J7050; J7512; U0002

== ENCOUNTER 2023-08-25 17:55 | Emergency (ER) | payer MEDICARE, BC ==
[2023-08-25] MEDS: Sodium Chloride 0.9% 500 ML IV SCH (18:00)
[2023-08-25] MEDS: Diltiazem 25 MG/5 ML SDV IVPUSH ONE ×2 (18:25→18:46)
[2023-08-25 18:29] LABS: BASOPHILS ABSOLUTE AUTO 0.06 10^3/uL (0.00-0.50); BASOPHILS PERCENT AUTO 0.7 % (0-1); EOSINOPHILS ABSOLUTE AUTO 0.03 10^3/uL (0.00-1.50); EOSINOPHILS PERCENT AUTO 0.4 % (0-6); HEMATOCRIT 27.9 % (42.0-52.0); HEMOGLOBIN 8.6 g/dL (14.0-18.0); IMMATURE GRAN ABSOLUTE AUTO 0.15 10^3/uL (0.00-0.49); IMMATURE GRAN PERCENT AUTO 1.8 % (0.0-4.9); LYMPHOCYTES ABSOLUTE AUTO 0.63 10^3/uL (0.60-5.00); LYMPHOCYTES PERCENT AUTO 7.6 % (24-44); MEAN CORPUSCULAR HEMOGLOBIN 21.9 pg (27.0-32.0); MEAN CORPUSCULAR HGB CONC 30.8 g/dL (32.0-36.0); MEAN CORPUSCULAR VOLUME 71.2 fL (83.0-97.0); MONOCYTES ABSOLUTE AUTO 0.93 10^3/uL (0.00-1.50); MONOCYTES PERCENT AUTO 11.3 % (0-10); NEUTROPHILS ABSOLUTE AUTO 6.44 x10^3/uL (1.80-8.00); NEUTROPHILS PERCENT AUTO 78.2 % (41-71); PLATELET COUNT,PLT 363 10^3/uL (150-400); RED BLOOD CELL COUNT 3.92 x10^6/uL (4.50-6.00); WHITE BLOOD CELL COUNT,WBC 8.2 10^3/uL (4.0-11.0)
[2023-08-25 18:45] LABS: ALBUMIN 3.5 g/dL (3.4-5.0); BILIRUBIN TOTAL 0.3 mg/dL (0.0-1.0); CALCIUM 9.6 mg/dL (8.4-10.1); EST CRCL DRUG DOSING (CG) 27.88 mL/min; MAGNESIUM 1.1 mg/dL (1.8-2.4); POTASSIUM,K 4.7 mEq/L (3.5-5.0); PROTEIN TOTAL,TP 7.7 g/dL (6.4-8.2)
[2023-08-25] MEDS ORDERED: Magnesium Sulfate/Water 2 GM in Premix Bag 1 BAG IV ONE (18:58)
[2023-08-25] MEDS: Magnesium Sulfate (4.06 MEQ/ML) 1 GM/2 ML SDV IM ONE (19:15)
[2023-08-25] MEDS: Diltiazem 120 MG Cap.CD PO ONE (19:28)
== END 2023-08-25 20:30 | disposition home or self-care (01) ==
LOC: CC.ED 17:55
DX: I48.11 Longstanding persistent atrial fibrillation (principal); I13.0 Hypertensive heart and chronic kidney disease with heart failure and stage 1 through stage 4 chronic kidney disease, or unspecified chronic kidney disease; E11.22 Type 2 diabetes mellitus with diabetic chronic kidney disease; J44.9 Chronic obstructive pulmonary disease, unspecified; N18.9 Chronic kidney disease, unspecified; E87.1 Hypo-osmolality and hyponatremia; E78.00 Pure hypercholesterolemia, unspecified; I50.9 Heart failure, unspecified; Z86.16 Personal history of COVID-19; Z88.1 Allergy status to other antibiotic agents; Z79.4 Long term (current) use of insulin; Z79.899 Other long term (current) drug therapy
CPT/HCPCS: 36415; 80053; 83735; 84484; 85025; 96361; 96372; 96374; 99285-25; A9270-GY; J3475; J3490; J7040

== ENCOUNTER 2023-08-26 05:12 | Observation (INO) | payer MEDICARE, BC ==
[2023-08-26] MEDS ORDERED: Furosemide 40 MG/4 ML VIAL IVPUSH ONE (05:46)
[2023-08-26 06:22] LABS: BASOPHILS ABSOLUTE AUTO 0.04 10^3/uL (0.00-0.50); BASOPHILS PERCENT AUTO 0.5 % (0-1); EOSINOPHILS ABSOLUTE AUTO 0.03 10^3/uL (0.00-1.50); EOSINOPHILS PERCENT AUTO 0.4 % (0-6); HEMOGLOBIN 8.4 g/dL (14.0-18.0); IMMATURE GRAN ABSOLUTE AUTO 0.16 10^3/uL (0.00-0.49); IMMATURE GRAN PERCENT AUTO 1.9 % (0.0-4.9); LYMPHOCYTES ABSOLUTE AUTO 0.59 10^3/uL (0.60-5.00); LYMPHOCYTES PERCENT AUTO 6.9 % (24-44); MEAN CORPUSCULAR HGB CONC 31.1 g/dL (32.0-36.0); MEAN CORPUSCULAR VOLUME 70.9 fL (83.0-97.0); MONOCYTES ABSOLUTE AUTO 1.18 10^3/uL (0.00-1.50); MONOCYTES PERCENT AUTO 13.8 % (0-10); NEUTROPHILS ABSOLUTE AUTO 6.56 x10^3/uL (1.80-8.00); NEUTROPHILS PERCENT AUTO 76.5 % (41-71); PLATELET COUNT,PLT 369 10^3/uL (150-400); RED BLOOD CELL COUNT 3.81 x10^6/uL (4.50-6.00); WHITE BLOOD CELL COUNT,WBC 8.6 10^3/uL (4.0-11.0)
[2023-08-26] MEDS ORDERED: Metoprolol Tartrate 5 MG/5 ML SDV IVPUSH ONE ×3 (06:33→17:30)
[2023-08-26 06:34] LABS: ALBUMIN 3.5 g/dL (3.4-5.0); BILIRUBIN TOTAL 0.5 mg/dL (0.0-1.0); C-REACTIVE PROTEIN 1.65 mg/dL (<=0.30); CALCIUM 9.3 mg/dL (8.4-10.1); EST CRCL DRUG DOSING (CG) 26.13 mL/min; MAGNESIUM 1.6 mg/dL (1.8-2.4); POTASSIUM,K 4.5 mEq/L (3.5-5.0); PROTEIN TOTAL,TP 7.8 g/dL (6.4-8.2)
[2023-08-26] MEDS ORDERED: Diltiazem 100 MG in Sodium Chloride 0.9% 100 ML IV SCH (06:45)
[2023-08-26] MEDS ORDERED: Ondansetron 4 MG Tab.DIS PO PRN (07:29)
[2023-08-26] MEDS ORDERED: Sodium Chloride 0.9% 1,000 ML IV STA (07:29)
[2023-08-26] MEDS ORDERED: Docusate Sodium 100 MG Cap PO PRN (07:29)
[2023-08-26] MEDS ORDERED: Polyethylene Glycol 3350 Powder 17 GM Packet PO PRN (07:29)
[2023-08-26] MEDS ORDERED: Acetaminophen 325 MG Tab PO PRN (07:29)
[2023-08-26] MEDS ORDERED: Albuterol 0.083% 2.5 MG/3 ML Neb Soln NEB PRN (09:00)
[2023-08-26] MEDS ORDERED: 50% Dextrose in Water 50 ML Syringe IVPUSH PRN (09:00)
[2023-08-26] MEDS ORDERED: Oxyquinoline/Emollient 0.3% Oint 4 OZ Canister TOP PRN (09:00)
[2023-08-26] MEDS ORDERED: Glucagon,Human Recombinant 1 MG Vial IM PRN (09:00)
[2023-08-26] MEDS ORDERED: Magnesium Hydroxide 400 MG/5 ML Susp 30 ML Cup PO PRN (09:00)
[2023-08-26] MEDS: Insulin Lispro 100 Units/ML 3 ML Vial SUBCUT SCH ×4 (09:37→20:51)
[2023-08-26] MEDS ORDERED: Insulin Lispro 100 Units/ML 3 ML Vial ONE (09:37)
[2023-08-26] MEDS ORDERED: Diltiazem 120 MG Cap.CD PO ONE (10:52)
[2023-08-26 11:00] LABS: APPEARANCE,URINE CLEAR (CLEAR); BILIRUBIN,URINE NEGATIVE (NEGATIVE); COLOR,URINE YELLOW (YELLOW); GLUCOSE,URINE 100 mg/dL (NEGATIVE); KETONES,URINE NEGATIVE (NEGATIVE); LEUKOCYTE ESTERASE,URINE NEGATIVE (NEGATIVE); NITRITE,URINE NEGATIVE (NEGATIVE); OCCULT BLOOD,URINE TRACE-INTACT (NEGATIVE); PH,URINE 5.5 (4.5-8.0); PROTEIN,URINE NEGATIVE (NEGATIVE); UROBILINOGEN,URINE 0.2 EU/dL (0.2-1.0)
[2023-08-26 11:08] LABS: BACTERIA,URINE NOT SEEN /HPF (NOT SEEN); RBC,URINE 0-5 /HPF (0-5); SQUAMOUS EPITHELIAL CELLS,UR FEW /HPF (NOT SEEN); WBC,URINE 0-5 /HPF (0-5)
[2023-08-26] MEDS: Nystatin Topical Powder 15 GM Bottle TOP SCH ×2 (14:19→20:02)
[2023-08-26] MEDS ORDERED: Sodium Chloride 0.9% 1,000 ML IV SCH (14:30)
[2023-08-26] MEDS: hydrOXYzine HCl 25 MG Tab PO PRN ×2 (14:44→20:44)
[2023-08-26] MEDS: Furosemide 40 MG Tab PO SCH (16:21)
[2023-08-26] MEDS ORDERED: Insulin NPH/Insulin Regular,Human 70-30 100 Units/ML 10 ML Vial SUBCUT SCH (17:00)
[2023-08-26] MEDS ORDERED: Melatonin 3 MG Tab PO PRN (17:18)
[2023-08-26 17:37] LABS: BASOPHILS ABSOLUTE AUTO 0.05 10^3/uL (0.00-0.50); BASOPHILS PERCENT AUTO 0.6 % (0-1); EOSINOPHILS ABSOLUTE AUTO 0.12 10^3/uL (0.00-1.50); EOSINOPHILS PERCENT AUTO 1.5 % (0-6); HEMOGLOBIN 8.3 g/dL (14.0-18.0); IMMATURE GRAN ABSOLUTE AUTO 0.12 10^3/uL (0.00-0.49); IMMATURE GRAN PERCENT AUTO 1.5 % (0.0-4.9); LYMPHOCYTES ABSOLUTE AUTO 0.58 10^3/uL (0.60-5.00); LYMPHOCYTES PERCENT AUTO 7.1 % (24-44); MEAN CORPUSCULAR HEMOGLOBIN 22.3 pg (27.0-32.0); MEAN CORPUSCULAR HGB CONC 31.9 g/dL (32.0-36.0); MEAN CORPUSCULAR VOLUME 69.7 fL (83.0-97.0); MONOCYTES ABSOLUTE AUTO 1.06 10^3/uL (0.00-1.50); NEUTROPHILS ABSOLUTE AUTO 6.21 x10^3/uL (1.80-8.00); NEUTROPHILS PERCENT AUTO 76.3 % (41-71); PLATELET COUNT,PLT 334 10^3/uL (150-400); RED BLOOD CELL COUNT 3.73 x10^6/uL (4.50-6.00); WHITE BLOOD CELL COUNT,WBC 8.1 10^3/uL (4.0-11.0)
[2023-08-26 17:54] LABS: ALBUMIN 3.3 g/dL (3.4-5.0); BILIRUBIN TOTAL 0.5 mg/dL (0.0-1.0); CALCIUM 9.4 mg/dL (8.4-10.1); CREATININE 1.7 mg/dL (0.7-1.3); EST CRCL DRUG DOSING (CG) 30.74 mL/min; MAGNESIUM 1.6 mg/dL (1.8-2.4); POTASSIUM,K 4.1 mEq/L (3.5-5.0); PROTEIN TOTAL,TP 7.4 g/dL (6.4-8.2)
[2023-08-26] MEDS: Calcium Carbonate/Vitamin D3 1250 MG-5 MCG Tab PO SCH (19:53)
[2023-08-26] MEDS: predniSONE 5 MG Tab PO SCH (19:54)
[2023-08-26] MEDS: traMADol 50 MG Tab PO SCH (19:54)
[2023-08-26] MEDS: Polyvinyl Alcohol 1.4% Ophth Soln 15 ML Bottle EYEBOTH SCH (19:54)
[2023-08-26] MEDS: Sennosides/Docusate Sodium 50-8.6 MG Tab PO SCH (19:54)
[2023-08-26] MEDS ORDERED: atorvaSTATin 20 MG Tab PO SCH (20:00)
[2023-08-26] MEDS ORDERED: Non-Formulary Medication 1 Each (Saliva Substitute Combo No.9 [Biotene] 1,000 ML Mouthwash PO SCH (20:00)
[2023-08-26] MEDS ORDERED: Tamsulosin 0.4 MG Cap.ER PO SCH (20:00)
[2023-08-27 07:32] LABS: BASOPHILS ABSOLUTE AUTO 0.05 10^3/uL (0.00-0.50); BASOPHILS PERCENT AUTO 0.8 % (0-1); EOSINOPHILS ABSOLUTE AUTO 0.07 10^3/uL (0.00-1.50); EOSINOPHILS PERCENT AUTO 1.2 % (0-6); HEMATOCRIT 25.8 % (42.0-52.0); HEMOGLOBIN 8.2 g/dL (14.0-18.0); IMMATURE GRAN ABSOLUTE AUTO 0.08 10^3/uL (0.00-0.49); IMMATURE GRAN PERCENT AUTO 1.3 % (0.0-4.9); LYMPHOCYTES ABSOLUTE AUTO 0.46 10^3/uL (0.60-5.00); LYMPHOCYTES PERCENT AUTO 7.6 % (24-44); MEAN CORPUSCULAR HEMOGLOBIN 22.3 pg (27.0-32.0); MEAN CORPUSCULAR HGB CONC 31.8 g/dL (32.0-36.0); MEAN CORPUSCULAR VOLUME 70.1 fL (83.0-97.0); MONOCYTES ABSOLUTE AUTO 0.81 10^3/uL (0.00-1.50); MONOCYTES PERCENT AUTO 13.4 % (0-10); NEUTROPHILS ABSOLUTE AUTO 4.57 x10^3/uL (1.80-8.00); NEUTROPHILS PERCENT AUTO 75.7 % (41-71); PLATELET COUNT,PLT 328 10^3/uL (150-400); RED BLOOD CELL COUNT 3.68 x10^6/uL (4.50-6.00)
[2023-08-27] MEDS: Calcium Carbonate/Vitamin D3 1250 MG-5 MCG Tab PO SCH (07:58)
[2023-08-27] MEDS: predniSONE 5 MG Tab PO SCH (07:58)
[2023-08-27] MEDS: traMADol 50 MG Tab PO SCH (07:59)
[2023-08-27] MEDS ORDERED: Cholecalciferol (Vitamin D3) 5,000 UNIT Tab PO SCH (08:00)
[2023-08-27] MEDS ORDERED: Polyethylene Glycol 3350 Powder 17 GM Packet PO SCH (08:00)
[2023-08-27] MEDS ORDERED: Diltiazem 120 MG Cap.CD PO SCH ×2 (08:00)
[2023-08-27] MEDS ORDERED: Insulin NPH/Insulin Regular,Human 70-30 100 Units/ML 10 ML Vial SUBCUT SCH (08:00)
[2023-08-27] MEDS ORDERED: Loratadine 10 MG Tab PO SCH (08:00)
[2023-08-27] MEDS ORDERED: Pantoprazole 40 MG Tab.CR PO SCH (08:00)
[2023-08-27] MEDS ORDERED: Lisinopril 20 MG Tab PO SCH (08:00)
[2023-08-27] MEDS: Sennosides/Docusate Sodium 50-8.6 MG Tab PO SCH (08:00)
[2023-08-27] MEDS ORDERED: amLODIPine 10 MG Tab PO SCH (08:00)
[2023-08-27] MEDS: Furosemide 40 MG Tab PO SCH (08:00)
[2023-08-27] MEDS ORDERED: Folic Acid 1 MG Tab PO SCH (08:00)
[2023-08-27] MEDS: Insulin Lispro 100 Units/ML 3 ML Vial SUBCUT SCH (08:08)
[2023-08-27] MEDS: Polyvinyl Alcohol 1.4% Ophth Soln 15 ML Bottle EYEBOTH SCH (08:14)
[2023-08-27] MEDS: Nystatin Topical Powder 15 GM Bottle TOP SCH (08:14)
== END 2023-08-27 10:02 | disposition home or self-care (01) ==
LOC: CC.ED 05:12 → CC.MS 06:53 → CC.ED 07:00 → CC.MS 07:26 → UNDOADMOB 07:26
PROVIDERS: ADMIT Nurse Practitioner; ATTEND Nurse Practitioner
DX: I48.11 Longstanding persistent atrial fibrillation (principal); E87.1 Hypo-osmolality and hyponatremia; E11.65 Type 2 diabetes mellitus with hyperglycemia; I13.0 Hypertensive heart and chronic kidney disease with heart failure and stage 1 through stage 4 chronic kidney disease, or unspecified chronic kidney disease; E11.22 Type 2 diabetes mellitus with diabetic chronic kidney disease; N18.9 Chronic kidney disease, unspecified; I50.9 Heart failure, unspecified; R79.89 Other specified abnormal findings of blood chemistry; N17.9 Acute kidney failure, unspecified; E78.00 Pure hypercholesterolemia, unspecified; J44.9 Chronic obstructive pulmonary disease, unspecified; Z20.822 Contact with and (suspected) exposure to COVID-19; Z88.1 Allergy status to other antibiotic agents; Z79.84 Long term (current) use of oral hypoglycemic drugs; Z79.4 Long term (current) use of insulin; Z79.899 Other long term (current) drug therapy
CPT/HCPCS: 36415; 70450; 71045; 80053; 81001; 82800; 82947; 83605; 83735; 83880; 84484; 85025; 86140; 87040; 87804; 93005; 93010; 96365; 96366; 96374; 96375; 96376; 99285-25; A9270-GY; G0378; J1815-GY; J1940; J3490; J7030; J7512; J7613-GY; U0002